=== PATIENT | male | born 1940 | race Caucasian/White ===

== ENCOUNTER 2016-09-04 15:15 | Outpatient (CLI) | payer MEDICARE, BC | END 2016-09-04 15:16 | disposition home or self-care (01) | DX: H53.452 Other localized visual field defect, left eye (principal) ==

== ENCOUNTER 2018-02-12 09:03 | Outpatient (CLI) | payer MEDICARE, BC | END 2018-02-12 09:04 | disposition home or self-care (01) | LOC: DI 09:03 | PROVIDERS: ATTEND Internal Medicine | DX: R06.00 Dyspnea, unspecified (principal); I51.7 Cardiomegaly | CPT/HCPCS: 93306 ==

== ENCOUNTER 2018-06-13 19:43 | Outpatient (CLI) | payer MEDICARE, BC | END 2018-06-13 19:44 | disposition critical access hospital (66) | LOC: EMS 19:43 | PROVIDERS: ATTEND Surgery | DX: R47.9 Unspecified speech disturbances (principal); R29.810 Facial weakness; R41.0 Disorientation, unspecified | CPT/HCPCS: A0425; A0429 ==

== ENCOUNTER 2018-06-13 19:52 | Emergency (ER) | payer MEDICARE, BC ==
--- NOTE | 2018-06-13 20:00 | ED Physician Documentation ---
PD HPI FOCAL NEURO - Stated complaint Stated Complaint: POSS STROKE - History obtained from History obtained from: Patient, EMS - History of Present Illness Timing - onset: Today (At 6:35 PM while at dinner this 77-year-old gentleman who has had a TIA in the past and is on warfarin for history of factor V Leiden with DVT presented with slurred speech and difficulty talking as well as a right facial droop. He has no complaints now.) Review of Systems Ten Systems: 10 systems reviewed and negative Constitutional: denies: Fever, Chills Throat: reports: Reviewed and negative Cardiac: reports: Reviewed and negative PD PAST MEDICAL HISTORY - Past Medical History Cardiovascular: Hypertension, High cholesterol, Pulmonary embolism Respiratory: None Endocrine/Autoimmune: None GI: None : None HEENT: None Psych: None Musculoskeletal: Osteoarthritis Derm: None - Past Surgical History General: Appendectomy, Colonoscopy HEENT: Tonsil/Adenoidectomy - Present Medications Home Medications: Ambulatory Orders Medication Instructions Recorded Confirmed Diclofenac Sodium 37.5 BID 06/05/13 06/05/13 Simvastatin 20 mg PO 06/05/13 06/05/13 Warfarin Sodium [Coumadin] 6 mg PO 06/05/13 06/05/13 - Allergies Allergies/Adverse Reactions: Allergies Allergy/AdvReac Type Severity Reaction Status Date / Time hydromorphone HCl * Allergy Severe Nausea Verified 06/05/13 14:37 [From Dilaudid] meperidine HCl * Allergy Severe Nausea Verified 06/05/13 14:37 [From Demerol] PD ED PE NORMAL - Vitals Vital signs reviewed: Yes - General General: Alert and oriented X 3, No acute distress - HEENT HEENT: PERRL, EOMI - Neck Neck: Supple, no meningeal sign, No bony TTP - Cardiac Cardiac: RRR, No murmur - Respiratory Respiratory: No respiratory distress, Clear bilaterally - Abdomen Abdomen: Normal bowel sounds, Soft, Non tender - Back Back: No CVA TTP, No spinal TTP - Derm Derm: Normal color, Warm and dry - Extremities Extremities: No edema, No calf tenderness / cord - Neuro Neuro: Alert and oriented X 3, Normal speech Eye Opening: Spontaneous Motor: Obeys Commands Verbal: Oriented GCS Score: 15 - Psych Psych: Normal mood, Normal affect NIHSS - Time Time: 19:55 - Level of Consciousness Level of consciousness: (0) Alert, Keenly responsive LOC Questions: (0) Answers both Q's correct LOC Commands: (0) Performs both correctly - Gaze Best Gaze: (0) Normal - Visual Visual: (0) No loss - Facial Palsy Facial Palsy: (0) Normal, symmetrical movement - Motor Arms (both separate) Motor Arm (right): (0) No drift Motor Arm (left): (0) No drift - Motor Legs (both separate) Motor Leg (right): (0) No drift Motor Leg (left): (0) No drift - Limb Ataxia Limb Ataxia: (0) Absent - Sensory Sensory: (0) Normal - Best Language Best Language: (0) No aphasia - Dysarthria Dysarthria: (0) Normal - Extinction and Inattention (formally neg Extinction and inattention: (0) No abnormality - Total Score/Results Total Score/Result: 0 Results - Vitals Vitals: Vital Signs - 24 hr 06/13/18 06/13/18 06/13/18 19:56 20:04 20:26 Temperature 36.9 C Heart Rate 76 67 Respiratory 20 18 Rate Blood Pressure 147/80 H 147/80 H O2 Saturation 96 97 Oxygen O2 Source Room air - EKG (time done) 1958 Rate: Rate (enter#) (74) Rhythm: NSR [place]: Normal, LAD Intervals: Normal [place] QRS: Normal Ischemia: Normal ST segments Computer interpretation: Agree with computer - Labs Labs: Laboratory Tests 06/13/18 06/13/18 06/13/18 20:02 20:02 20:02 WBC 10.1 RBC 4.62 L Hgb 14.8 Hct 44.6 MCV 96.5 H MCH 32.1 H MCHC 33.2 RDW 14.1 Plt Count 221 MPV 8.8 Neut # (Auto) 5.9 Lymph # (Auto) 2.8 [place] # (Auto) 0.9 Eos # (Auto) 0.4 Baso # (Auto) 0.1 Absolute Nucleated RBC 0.00 Nucleated RBC % 0.0 PT 32.0 H INR 2.9 H Sodium 141 Potassium 4.0 Chloride 107 Carbon Dioxide 24 Anion Gap 10.0 BUN 22 H Creatinine 0.9 Estimated GFR (MDRD) 82 L Glucose 162 H Calcium 8.8 Total Bilirubin 1.0 AST 31 ALT 39 Alkaline Phosphatase 86 Total Protein 7.5 Albumin 3.6 Globulin 3.9 Albumin/Globulin Ratio 0.9 L Lipase 34 Ethyl Alcohol 6.6 PD MEDICAL DECISION MAKING - ED course ED course: 77-year-old gentleman therapeutically anticoagulated on warfarin presents with strokelike symptoms but he was also drinking tonight and that the symptoms could be consistent with that although his alcohol level here is negligible. He had similar episode 2 months ago in [place] and per their description he had a complete workup there including carotid ultrasound without pertinent findings. Given the recurrent nature of this and the fact that he is therapeutically anticoagulated he is not a TPA candidate given the resolve nature of the symptoms and also probably does not need formal observation in the hospital given that he is on fairly maximal medical therapy. Departure - Departure Disposition: 01 Home, Self Care Clinical Impression: TIA (transient ischemic attack) Condition: Good Record reviewed to determine appropriate education?: Yes Instructions: ED Transient Ischemic Attack Comments: Refrain from alcohol. Follow-up with your doctor on Sunday for further evaluation and treatment, discuss low-dose aspirin therapy in addition to your warfarin.
[2018-06-13 20:18] LABS: BASOPHILS # (AUTO) 0.1 10^3/uL (0.0-0.1); BASOPHILS % (AUTO) 1.2 %; EOSINOPHILS # (AUTO) 0.4 10^3/uL (0.0-0.7); EOSINOPHILS % (AUTO) 3.6 %; HGB - HEMOGLOBIN 14.8 g/dL (14.0-18.0); LYMPHOCYTES # (AUTO) 2.8 10^3/uL (1.5-3.5); LYMPHOCYTES % (AUTO) 27.9 %; MEAN CORPUSCULAR HEMOGLOBIN 32.1 pg (27.0-31.0); MEAN CORPUSCULAR HGB CONC 33.2 g/dL (32.0-36.0); MEAN CORPUSCULAR VOLUME 96.5 fL (80.0-94.0); MEAN PLATELET VOLUME 8.8 fL (7.4-11.4); MONOCYTES # (AUTO) 0.9 10^3/uL (0.0-1.0); NEUTROPHILS # (AUTO) 5.9 10^3/uL (1.5-6.6); NEUTROPHILS % (AUTO) 58.3 %; PLT - PLATELET COUNT 221 10^3/uL (130-450); RED BLOOD COUNT 4.62 10^6/uL (4.70-6.10); RED CELL DISTRIBUTION WIDTH 14.1 % (12.0-15.0); WHITE BLOOD COUNT 10.1 x10^3/uL (4.8-10.8)
--- NOTE | 2018-06-13 20:24 | CT Report ---
Reason: TIA sx Procedure Date: 06/13/2018 Accession Number: [id number] / [id number] Procedure: CT - Head W/O Stroke Protocol CPT Code: FULL RESULT: EXAM: CT HEAD EXAM DATE: 06/13/2018 08:15 PM. CLINICAL HISTORY: Stroke. COMPARISON: None. TECHNIQUE: Multiaxial CT images were obtained from the foramen magnum to the vertex. Reformats: Sagittal and coronal. IV contrast: None. In accordance with CT protocol optimization, one or more of the following dose reduction techniques were utilized for this exam: automated exposure control, adjustment of mA and/or KV based on patient size, or use of iterative reconstructive technique. FINDINGS: Parenchyma: No intraparenchymal hemorrhage. No evidence of mass, midline shift, or CT findings of acute infarction. Gilliland-white differentiation is distinct. Extraaxial Spaces: Normal for age. No subdural or epidural collections identified. Ventricles: Normal in size and position. Sinuses and Orbits: Imaged paranasal sinuses, orbits, and mastoids show no significant abnormality. Bones: No evidence of fracture or calvarial defect. Other: None. IMPRESSION: No acute intracranial CT abnormality. RADIA The above findings were discussed with Drake Muhammad by Dr. Orin Lauren at 20:23 hrs on 06/13/18.
[2018-06-13 20:25] LABS: INR 2.9 (0.8-1.2)
[2018-06-13 20:29] LABS: ALBUMIN 3.6 g/dL (3.2-5.5); ALBUMIN/GLOBULIN RATIO 0.9 (1.0-2.2); CALCIUM 8.8 mg/dL (8.5-10.3); CREATININE 0.9 mg/dL (0.6-1.2); TOTAL PROTEIN 7.5 g/dL (6.7-8.2)
[2018-06-13 21:02] VITALS: BP 157/86
== END 2018-06-13 21:03 | disposition home or self-care (01) ==
LOC: EDUNIT# → ED 19:52
DX: G45.9 Transient cerebral ischemic attack, unspecified (principal); I10 Essential (primary) hypertension; D68.51 Activated protein C resistance; Z86.711 Personal history of pulmonary embolism; Z87.898 Personal history of other specified conditions; Z86.73 Personal history of transient ischemic attack (TIA), and cerebral infarction without residual deficits; Z86.718 Personal history of other venous thrombosis and embolism; Z79.01 Long term (current) use of anticoagulants
CPT/HCPCS: 36415; 70450; 80053; 80320; 83690; 85025; 85610; 93005; 99284

== ENCOUNTER 2019-02-15 08:34 | Outpatient (CLI) | payer MEDICARE, BC ==
[~2019-02-15 08:34] MED LIST: ALBUTEROL NEB 2.5 MG/3 ML INH SCH
== END 2019-02-15 08:35 | disposition home or self-care (01) ==
LOC: RT 08:34
PROVIDERS: ATTEND Internal Medicine
DX: R06.09 Other forms of dyspnea (principal)
CPT/HCPCS: 94060

== ENCOUNTER 2020-05-03 09:30 | Emergency (ER) | payer BC, MEDICARE ==
--- NOTE | 2020-05-03 10:32 | ED Physician Documentation ---
PD HPI SKIN - Stated complaint Stated Complaint: NECK PX, RAMIREZ, RASH - History obtained from History obtained from: Patient - History of Present Illness Timing - onset: How many days ago (3-4) Timing - duration: Days (3-4) Timing - details: Gradual onset (onset of pain left side of face and around ear 3-4 days ago, with gradual worsening, and started with some rash blistering in that area 2-3 days ago, also increasing. Much worse pain the past day. Increased redness of rash as well around the chin.) Location: Face (left side mandible, anterior neck, up to the periauricular area.) Quality / character: Painful, Discolored, Vesicular, Draining (clear fluid mildly) Associated symptoms: Facial swelling (left mandible and anterior neck area). No: Fever, Myalgias Similar symptoms before: Has not had sx before Review of Systems Constitutional: reports: Myalgias. denies: Fever, Chills Nose: denies: Rhinorrhea / runny nose, Congestion Throat: denies: Sore throat Respiratory: denies: Cough GI: denies: Abdominal Pain, Nausea, Vomiting Skin: reports: Rash (left lower face and anterior neck.) Neurologic: denies: Generalized weakness, Focal weakness, Numbness PD PAST MEDICAL HISTORY - Past Medical History Cardiovascular: Hypertension, High cholesterol, Pulmonary embolism Respiratory: None Neuro: TIA Endocrine/Autoimmune: None GI: None : None HEENT: None Psych: None Musculoskeletal: Osteoarthritis Derm: None - Past Surgical History Past Surgical History: Yes General: Appendectomy, Colonoscopy HEENT: Tonsil/Adenoidectomy - Present Medications Home Medications: Ambulatory Orders Medication Instructions Recorded Confirmed Diclofenac Sodium 37.5 BID 06/05/13 06/05/13 Simvastatin 20 mg PO 06/05/13 06/05/13 Warfarin Sodium [Coumadin] 6 mg PO 06/05/13 06/05/13 - Allergies Allergies/Adverse Reactions: Allergies Allergy/AdvReac Type Severity Reaction Status Date / Time hydromorphone HCl * Allergy Severe Nausea Verified 06/05/13 14:37 [From Dilaudid] meperidine HCl * Allergy Severe Nausea Verified 06/05/13 14:37 [From Demerol] - Social History Does the pt smoke?: No Smoking Status: Never smoker Does the pt drink ETOH?: Yes - Immunizations Immunizations are current?: No PD ED PE NORMAL - Vitals Vital signs reviewed: Yes - General General: Alert and oriented X 3, Well developed/nourished, Other (appears in pain due to face hurting. ) - HEENT HEENT: Ears normal, Moist mucous membranes, Pharynx benign - Neck Neck: Supple, no meningeal sign, No adenopathy, Other (there is blistering nearly confluent rash on left periauricular, anterior neck and mandible area going to midline anterior neck and abruptly stopping at midline. Some redness of skin just right of midline but no rash nor tenderness. Some areas of crusting with yellow on anterior neck. 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
[2020-05-03] MEDS ORDERED: ACYCLOVIR 200 MG CAPSULE PO ONE (11:05)
[2020-05-03] MEDS ORDERED: DOXYCYCLINE 100 MG TABLET PO ONE (11:05)
[2020-05-03] MEDS ORDERED: HYDROcod/ACETAM 5/325 MG TABLET ONE (11:06)
[2020-05-03] MEDS ORDERED: DEXAMETHASONE 10 MG/ML VIAL ONE (11:06)
[2020-05-03 19:13] LABS: INR 2.9 (0.8-1.2); PT - PROTHROMBIN TIME 30.3 secs (9.9-12.6)
== END 2020-05-03 11:27 | disposition home or self-care (01) ==
LOC: ED 09:30
DX: B02.8 Zoster with other complications (principal); I10 Essential (primary) hypertension; Z79.01 Long term (current) use of anticoagulants; Z86.711 Personal history of pulmonary embolism
CPT/HCPCS: 36415; 85610; 99283; 99284; A9270

== ENCOUNTER 2020-12-27 21:21 | Observation (INO) | payer MEDICARE ==
[2020-12-27 21:53] LABS: BASOPHILS % (AUTO) 0.2 %; HCT - HEMATOCRIT 41.6 % (42.0-52.0); HGB - HEMOGLOBIN 14.4 g/dL (14.0-18.0); LYMPHOCYTES % (AUTO) 8.4 %; MEAN CORPUSCULAR HEMOGLOBIN 32.5 pg (27.0-31.0); MEAN CORPUSCULAR HGB CONC 34.6 g/dL (32.0-36.0); MEAN CORPUSCULAR VOLUME 93.9 fL (80.0-94.0); MEAN PLATELET VOLUME 9.8 fL (7.4-11.4); MONOCYTES % (AUTO) 10.2 %; NEUTROPHILS % (AUTO) 80.6 %; PLT - PLATELET COUNT 196 10^3/uL (130-450); RED BLOOD COUNT 4.43 10^6/uL (4.70-6.10); RED CELL DISTRIBUTION WIDTH 13.8 % (12.0-15.0); WHITE BLOOD COUNT 23.4 x10^3/uL (4.8-10.8)
[2020-12-27 21:58] LABS: ABNORMAL LYMPHS % (MANUAL) 0 %
[2020-12-27 22:15] LABS: ALBUMIN 3.7 g/dL (3.2-5.5); ALBUMIN/GLOBULIN RATIO 1.1 (1.0-2.2); BILIRUBIN,TOTAL 1.6 mg/dL (0.2-1.0); CALCIUM 8.9 mg/dL (8.5-10.3); CREATININE 0.9 mg/dL (0.6-1.2); POTASSIUM 4.2 mmol/L (3.5-5.0); TOTAL PROTEIN 7.2 g/dL (6.7-8.2)
[2020-12-27 22:17] LABS: BAND NEUTROPHILS % (MANUAL) 3 %; LYMPHOCYTES # (MANUAL) 1.4 10^3/uL (1.5-3.5); LYMPHOCYTES % (MANUAL) 6 %; MONOCYTES # (MANUAL) 1.6 10^3/uL (0.0-1.0); NEUTROPHILS # (MANUAL) 20.4 10^3/uL (1.5-6.6); PLATELET ESTIMATE, MANUAL NORMAL (130-450,000) (NORMAL); PLATELET MORPHOLOGY NORMAL APPEARANCE (NORMAL); RBC MORPHOLOGY (MULTIPLE) NORMAL APPEARANCE (NORMAL); WBC MORPHOLOGY (MULTIPLE) 2+ TOXIC GRANULATION (NORMAL)
[2020-12-27 22:18] LABS: DIFFERENTIAL COMMENT MANUAL DIFFERENTIAL
[2020-12-27] MEDS ORDERED: SODIUM CHLORIDE 0.9% 1,000 ML IV STA (22:23)
[2020-12-27] MEDS ORDERED: IOVERSOL 320 100 ML VIAL IVP ONE ×2 (22:36→23:59)
[2020-12-27 22:39] LABS: INR 2.5 (0.8-1.2); PT - PROTHROMBIN TIME 26.2 secs (9.9-12.6)
--- NOTE | 2020-12-27 23:21 | ED Physician Documentation ---
PD HPI CHEST PAIN - Stated complaint Stated Complaint: DIZZY/CP - Chief complaint Chief Complaint: Cardiac - History obtained from History obtained from: Patient - Additional information Additional information: 80-year-old man with past medical history of factor V Leiden on Coumadin presents with abdominal pain starting at 1 AM on 12/27 waking him from sleep, sharp, intermittent, worsening throughout the day, associated with nausea no vomiting. Also had an episode of chest pain across the entire chest, nonradiating, that has now resolved. He also was endorsing some dizziness in the afternoon and his said that he was confused about the time. This is unusual for him. Patient denies fevers, vomiting, diarrhea, back pain or urinary symptoms. Review of Systems Ten Systems: 10 systems reviewed and negative Constitutional: denies: Fever, Chills Cardiac: reports: Chest pain / pressure Respiratory: denies: Dyspnea GI: reports: Abdominal Pain, Nausea. denies: Vomiting, Diarrhea : denies: Dysuria PD PAST MEDICAL HISTORY - Past Medical History Past Medical History: Yes Cardiovascular: Hypertension, High cholesterol, Pulmonary embolism Respiratory: None Neuro: TIA Endocrine/Autoimmune: None GI: None : None HEENT: None Psych: None Musculoskeletal: Osteoarthritis Derm: None - Past Surgical History Past Surgical History: Yes General: Appendectomy, Colonoscopy HEENT: Tonsil/Adenoidectomy - Present Medications Home Medications: Ambulatory Orders Medication Instructions Recorded Confirmed Simvastatin 20 mg PO 06/05/13 06/05/13 Warfarin Sodium [Coumadin] 5 mg PO 06/05/13 06/05/13 - Allergies Allergies/Adverse Reactions: Allergies Allergy/AdvReac Type Severity Reaction Status Date / Time hydromorphone HCl * Allergy Severe Nausea Verified 12/27/20 21:26 [From Dilaudid] meperidine HCl * Allergy Severe Nausea Verified 12/27/20 21:26 [From Demerol] - Social History Does the pt smoke?: No Smoking Status: Never smoker Does the pt drink ETOH?: Yes Does the pt have substance abuse?: No - Immunizations Immunizations are current?: No PD ED PE NORMAL - Vitals Vital signs reviewed: Yes - General General: Alert and oriented X 3, No acute distress, Well developed/nourished - HEENT HEENT: Atraumatic, PERRL, EOMI - Neck Neck: Supple, no meningeal sign - Cardiac Cardiac: RRR - Respiratory Respiratory: No respiratory distress, Clear bilaterally - Abdomen Abdomen: Other (Positive Aranda sign. Abdomen otherwise nontender nonperitoneal) - Back Back: No CVA TTP - Derm Derm: Normal color - Extremities Extremities: No deformity - Neuro Neuro: Alert and oriented X 3 - Psych Psych: Normal mood, Normal affect Results - Vitals Vitals: Vital Signs - 24 hr 12/27/20 12/27/20 12/28/20 21:26 22:36 00:07 Temperature 36.5 C Heart Rate 86 74 Heart Rate [ 84 Sitting] Heart Rate [ 92 Standing] Heart Rate [ 80 Supine] Respiratory 16 21 Rate Blood Pressure 134/63 H 132/82 H Blood Pressure 122/62 [Sitting] Blood Pressure 110/62 [Standing] Blood Pressure 113/66 [Supine] O2 Saturation 99 98 Oxygen O2 Source Room air - EKG (time done) 2125 Rate: Rate (enter#) (86) Rhythm: NSR [place]: LAD Intervals: Normal [place] QRS: Normal Ischemia: Normal ST segments Computer interpretation: Agree with computer - Labs Labs: Laboratory Tests 12/27/20 12/27/20 12/27/20 21:45 21:45 21:45 WBC 23.4 H RBC 4.43 L Hgb 14.4 Hct 41.6 L MCV 93.9 MCH 32.5 H MCHC 34.6 RDW 13.8 Plt Count 196 MPV 9.8 Neut # (Auto) Not Reportable Lymph # (Auto) Not Reportable [place] # (Auto) Not Reportable Eos # (Auto) Not Reportable Baso # (Auto) Not Reportable Absolute Nucleated RBC Not Reportable Total Counted 100 Band Neuts % (Manual) 3 Abnorm Lymph % (Manual) 0 Nucleated RBC % Not Reportable Neutrophils # (Manual) 20.4 H Lymphocytes # (Manual) 1.4 L Monocytes # (Manual) 1.6 H Eosinophils # (Manual) 0.0 Basophils # (Manual) 0.0 Differential Comment MANUAL DIFFERENTIAL WBC Morphology 2+ TOXIC GRANULATION Platelet Estimate NORMAL (130-450,000) Platelet Morphology NORMAL APPEARANCE RBC Morph Micro Appear NORMAL APPEARANCE PT INR Sodium 135 Potassium 4.2 Chloride 102 Carbon Dioxide 23 Anion Gap 10.0 BUN 22 H Creatinine 0.9 Estimated GFR (MDRD) 82 L Glucose 192 H Lactic Acid Calcium 8.9 Total Bilirubin 1.6 H AST 35 ALT 42 Alkaline Phosphatase 65 Troponin I High Sens 13.9 Total Protein 7.2 Albumin 3.7 Globulin 3.5 Albumin/Globulin Ratio 1.1 Lipase 21 L Nasal Adenovirus (PCR) Nasal B. parapertussis DNA (PCR) Nasal Coronavir 229E PCR Nasal Coronavir HKU1 PCR Nasal Coronavir NL63 PCR Nasal Coronavir OC43 PCR Nasal Enterovir/Rhinovir PCR Nasal Influenza B PCR Nasal Influenza A PCR Nasal Parainfluen 1 PCR Nasal Parainfluen 2 PCR Nasal Parainfluen 3 PCR Nasal Parainfluen 4 PCR Nasal RSV (PCR) Nasal B.pertussis DNA PCR Nasal C.pneumoniae (PCR) Blue Human Metapneumo PCR Nasal M.pneumoniae (PCR) Nasal SARS-CoV-2 (PCR) 12/27/20 12/27/20 12/28/20 22:28 22:30 00:57 WBC RBC Hgb Hct MCV MCH MCHC RDW Plt Count MPV Neut # (Auto) Lymph # (Auto) [place] # (Auto) Eos # (Auto) Baso # (Auto) Absolute Nucleated RBC Total Counted Band Neuts % (Manual) Abnorm Lymph % (Manual) Nucleated RBC % Neutrophils # (Manual) Lymphocytes # (Manual) Monocytes # (Manual) Eosinophils # (Manual) Basophils # (Manual) Differential Comment WBC Morphology Platelet Estimate Platelet Morphology RBC Morph Micro Appear PT 26.2 H INR 2.5 H Sodium Potassium Chloride Carbon Dioxide Anion Gap BUN Creatinine Estimated GFR (MDRD) Glucose Lactic Acid 2.0 Calcium Total Bilirubin AST ALT Alkaline Phosphatase Troponin I High Sens Total Protein Albumin Globulin Albumin/Globulin Ratio Lipase Nasal Adenovirus (PCR) NOT DETECTED Nasal B. parapertussis DNA (PCR) NOT DETECTED Nasal Coronavir 229E PCR NOT DETECTED Nasal Coronavir HKU1 PCR NOT DETECTED Nasal Coronavir NL63 PCR NOT DETECTED Nasal Coronavir OC43 PCR NOT DETECTED Nasal Enterovir/Rhinovir PCR NOT DETECTED Nasal Influenza B PCR NOT DETECTED Nasal Influenza A PCR NOT DETECTED Nasal Parainfluen 1 PCR NOT DETECTED Nasal Parainfluen 2 PCR NOT DETECTED Nasal Parainfluen 3 PCR NOT DETECTED Nasal Parainfluen 4 PCR NOT DETECTED Nasal RSV (PCR) NOT DETECTED Nasal B.pertussis DNA PCR NOT DETECTED Nasal C.pneumoniae (PCR) NOT DETECTED Blue Human Metapneumo PCR NOT DETECTED Nasal M.pneumoniae (PCR) NOT DETECTED Nasal SARS-CoV-2 (PCR) NOT DETECTED PD MEDICAL DECISION MAKING - ED course ED course: d/w Dr. Ralph who will admit patient for IV antibiotics, likely cholecystectomy tomorrow. Departure - Departure Disposition: ED Place in Observation Clinical Impression: Acute cholecystitis Condition: Good
[2020-12-27 23:31] LABS: B. PARAPERTUSSIS- RESP PCR PAN NOT DETECTED; B. PERTUSSIS- RESP PCR PANEL NOT DETECTED; C. PNEUMONIAE- RESP PCR PANEL NOT DETECTED; CORONAVIRUS 229E-RESP PCR NOT DETECTED; CORONAVIRUS HKU1-RESP PCR NOT DETECTED; CORONAVIRUS NL63-RESP PCR NOT DETECTED; CORONAVIRUS OC43-RESP PCR NOT DETECTED; HUMAN METAPNEUMOVIRUS NOT DETECTED; INFLUENZA A- RESP PCR PANEL NOT DETECTED; INFLUENZA B - RESP PCR PANEL NOT DETECTED; M. PNEUMONIAE- RESP PCR PANEL NOT DETECTED; PARAINFLUENZA VIRUS 1 NOT DETECTED; PARAINFLUENZA VIRUS 2 NOT DETECTED; PARAINFLUENZA VIRUS 3 NOT DETECTED; PARAINFLUENZA VIRUS 4 NOT DETECTED; RHINOVIRUS/ENTEROVIRUS NOT DETECTED; RSV- RESP PCR PANEL NOT DETECTED; SARS-CoV-2 -RESP PCR PANEL NOT DETECTED
[2020-12-28] MEDS ORDERED: SODIUM CHLORIDE FLUSH 0.9% 10 ML SYRINGE IVP PRN (01:41)
[2020-12-28] MEDS ORDERED: ACETAMINOPHEN 325 MG TABLET PO PRN (01:41)
[2020-12-28] MEDS ORDERED: ONDANSETRON 4 MG/2 ML VIAL IVP PRN (01:41)
[2020-12-28] MEDS ORDERED: HYDROmorphone 0.5 MG/0.5 ML SYRINGE IVP PRN (01:41)
[2020-12-28] MEDS ORDERED: ONDANSETRON ODT 4 MG TABLET TL PRN (01:41)
[2020-12-28] MEDS ORDERED: PIPERACILLIN/TAZOBACTAM 3.375 GM in SODIUM CHLORIDE 0.9% MINIBAG 100 ML IV STA (01:44)
[2020-12-28] MEDS ORDERED: ACETAMINOPHEN 325 MG TABLET PO STA (01:50)
--- OUTSIDE RECORDS SUMMARY | 2020-12-28 01:55 | EXTERNAL MEDICAL SUMMARY RPT | Continuity of Care Document ---
:1940 Demographics Phone Unavailable Preferred Language Unknown Marital Status Unknown Mosque Affiliation Unknown Race Unknown Ethnic Group Unknown Author Organization [facility] Address [address] [id number] Phone Allergies Encounters Medications Problems Results
[2020-12-28] MEDS: LACTATED RINGERS 1,000 ML IV SCH ×2 (02:38→13:24)
[2020-12-28] MEDS: AMPICILLIN/SULBACTAM 3 GM in SODIUM CHLORIDE 0.9% MINIBAG 100 ML IV SCH ×2 (05:34→12:29)
[2020-12-28 06:00] LABS: BILIRUBIN,URINE NEGATIVE (NEGATIVE); GLUCOSE, URINE (UA) NEGATIVE (NEGATIVE); KETONES,URINE (UA) NEGATIVE (NEGATIVE); LEUKOCYTE ESTERASE, URINE NEGATIVE (NEGATIVE); NITRITE,URINE NEGATIVE (NEGATIVE); OCCULT BLOOD,URINE TRACE-INTA (NEGATIVE); PROTEIN,URINE NEGATIVE (NEGATIVE); UROBILINOGEN,URINE 0.2 (NORMAL) E.U./dL (NORMAL)
[2020-12-28 06:03] LABS: CLARITY,URINE CLEAR (CLEAR)
[2020-12-28 06:15] LABS: BACTERIA,URINE None Seen /HPF (None Seen); RBC,URINE 0-5 /HPF (0-5); SQUAMOUS EPITHELIAL CELL,UR NONE SEEN (<= Few); WBC,URINE 0-3 /HPF (0-3)
--- NOTE | 2020-12-28 08:43 | XRAY Report ---
PROCEDURE: Chest 1 View X-Ray INDICATIONS: Chest pain TECHNIQUE: One view of the chest was acquired. COMPARISON: 09/28/2014 chest radiograph FINDINGS: Surgical changes and devices: None. Lungs and pleura: No pleural effusions or pneumothorax. Lungs are clear. Mediastinum: Mediastinal contours appear normal. Heart size is normal. Bones and chest wall: No suspicious bony lesions. Overlying soft tissues appear unremarkable. IMPRESSION: No acute cardiopulmonary process demonstrated radiographically. Reviewed by: Carrillo Brothers MD on 12/28/2020 8:42 AM PDT Approved by: Carrillo Brothers MD on 12/28/2020 8:42 AM PDT Station ID: [id number]
--- NOTE | 2020-12-28 08:46 | Ultrasound Report ---
PROCEDURE: Abdomen Limited INDICATIONS: RUQ pain TECHNIQUE: Real-time focused scanning was performed of the abdomen, with image documentation. COMPARISON: None FINDINGS: Small cyst in the right hepatic lobe measuring 7 mm. Liver is otherwise within normal limi ts. No intrahepatic or extra hepatic biliary ductal dilatation. The common bile duct measures approximate ly 4 mm at the rajwinder hepatis. Normal distention of the gallbladder. There is no pericholecystic fluid. The gallbladder wall measure s up to 4 mm. There is a shadowing gallstone measuring approximately 1.8 cm. IMPRESSION: Approximately 1.8 cm gallstone. Gallbladder wall thickening up to 4 mm without gallbladder distention. This finding is the clavicle f or possible acute cholecystitis in the appropriate clinical setting. Reviewed by: Carrillo Brothers MD on 12/28/2020 8:44 AM PDT Approved by: Carrillo Brothers MD on 12/28/2020 8:44 AM PDT Station ID: [id number]
--- NOTE | 2020-12-28 08:47 | CT Report ---
PROCEDURE: Abdomen/Pelvis W INDICATIONS: Epigastric and right upper quadrant abdominal pain. CONTRAST: IV CONTRAST: Optiray 320 ml: 100 PO CONTRAST: *NO PO CONTRAST TECHNIQUE: After the administration of intravenous contrast, 5 mm thick sections acquired from the diaphragms to the symphysis. 5 mm thick coronal and sagittal reformats were acquired. For radiation dose reducti on, the following was used: automated exposure control, adjustment of mA and/or kV according to juana ent size. COMPARISON: None. FINDINGS: Image quality: Excellent. ABDOMEN: Lung bases: Lung bases are clear. Heart size is normal. Solid organs: Previously seen gallstone is redemonstrated. The gallbladder is distended with wall thi ckening and mild pericholecystic or fat stranding. Findings are suggestive of cholecystitis. No intra hepatic or extrahepatic biliary ductal dilatation. No acute finding in the liver, spleen, pancreas, o r adrenal glands. Small bilateral renal cysts. No hydroureteronephrosis. Peritoneum and bowel: No abnormally dilated or thickened loops of bowel. No pericolonic or mesenteric inflammatory change. Sigmoid diverticulosis. Nodes and vessels: No retroperitoneal or mesenteric adenopathy by size criteria. Aorta and inferior vena cava are normal in size. Miscellaneous: No ventral hernias. PELVIS: Genitourinary: Bladder wall thickness is normal. Miscellaneous: No inguinal hernias or adenopathy. Bones: No suspicious bony lesions. No vertebral body compression fractures. IMPRESSION: Distended gallbladder with mild wall thickening and pericholecystic fat stranding. Findi ngs are suggestive of cholecystitis. Reviewed by: Carrillo Brothers MD on 12/28/2020 8:46 AM PDT Approved by: Carrillo Brothers MD on 12/28/2020 8:46 AM PDT Station ID: [id number]
[2020-12-28] MEDS ORDERED: SODIUM CHLORIDE FLUSH 0.9% 10 ML SYRINGE IVP SCH (09:00)
--- NOTE | 2020-12-28 09:08 | CT Report ---
PROCEDURE: ANGIO NECK W INDICATIONS: Stroke symptoms CONTRAST: IV CONTRAST: Optiray 320 ml: 100 PO CONTRAST: *NO PO CONTRAST TECHNIQUE: After the administration of intravenous contrast, 1.5 mm axial sections acquired from the aortic arch to the [place] of [place]. Coronal 3-D maximum intensity projection (MIP) and/or volume rendering ref ormats were then performed. For radiation dose reduction, the following was used: automated exposur e control, adjustment of mA and/or kV according to patient size. COMPARISON: None. FINDINGS: Image quality: Excellent. Carotid system: The great vessels demonstrate a conventional anatomy as they arise from the aortic a rc. The origins of the common carotid arteries appear patent. The common carotid arteries demonstr ate normal calibers and courses. The bifurcation regions appear normal bilaterally. The internal ca rotid arteries demonstrate normal caliber and course. Posterior circulation: The origins of the vertebral arteries appear patent. The more superior porti ons of the vertebral arteries demonstrate normal course and caliber. Dominant left vertebral artery w ith diminutive right vertebral artery. They join to form a normal appearing basilar artery. Soft tissues: Visualized neck soft tissues demonstrate no suspicious abnormalities. The thyroid is normal in size and there are no incidental findings. Bones: No suspicious bony lesions. Visualized cervical spine appears normally aligned. IMPRESSION: No hemodynamic significant stenosis of the major extracranial arterial vasculature. Atherosclerotic plaque and calcification at the carotid bifurcations without hemodynamically signific ant stenosis. The estimate of stenosis included in the report of the imaging study was calculated using the NASCET method CLINICAL RECOMMENDATION STATEMENTS: In patients <35 years with an ITN detected on CT, MRI, or extrathyroidal ultrasound, the Committee re commends further evaluation with dedicated thyroid ultrasound if the nodule is ?1 cm and has no suspi cious imaging features, and if the patient has normal life expectancy. In patients ?35 years with an ITN detected on CT, MRI, or extrathyroidal ultrasound, the Committee re commends further evaluation with dedicated thyroid ultrasound if the nodule is ?1.5 cm and has no wendy picious imaging features, and if the patient has normal life expectancy. (ACR, 2014) Reviewed by: Carrillo Brothers MD on 12/28/2020 9:06 AM PDT Approved by: Carrillo Brothers MD on 12/28/2020 9:06 AM PDT Station ID: [id number]
--- NOTE | 2020-12-28 09:13 | CT Report ---
PROCEDURE: ANGIO HEAD W/WO INDICATIONS: Acute confusion, history of factor V Leiden disorder CONTRAST: IV CONTRAST: Optiray 320 ml: 100 PO CONTRAST: *NO PO CONTRAST TECHNIQUE: Precontrast 4.5 mm thick angled axial sections acquired from the foramen magnum to the vertex. Afte r the administration of intravenous contrast, 1 mm thick sections acquired through the [place] is. Postcontrast 4.5 mm thick sections then re-acquired from the foramen magnum to the vertex. 3-di mensional uerozso-cuonmqonx-paprpllkjh (MIP) and/or volume rendering reformats were acquired of the c entral intracranial vasculature. For radiation dose reduction, the following was used: automated ex posure control, adjustment of mA and/or kV according to patient size. COMPARISON: None. FINDINGS: Image quality: Excellent. Anterior circulation: Intracranial internal carotid arteries are normal in size and flow. Hypoplasti c left A1 segment with a subjectively larger than expected anterior communicating artery, suggesting that the flow in the left anterior cerebral artery territory occurs primarily of the thigh the anteri or communicate artery. Remaining JOSUE branches are normal bilaterally. No flow limiting stenosis or oc clusion of the middle cerebral artery branches. No aneurysm identified in the anterior circulation. Posterior circulation: Hypoplastic right vertebral artery, particularly the V4 segment which contribu naveed to very little to the basilar circulation. The chronicity of the right V4 narrowing is unknown. CSF spaces: Ventricles are normal in size and shape. Basal cisterns are patent. No extra-axial flu id collections. Brain: No midline shift. No intracranial bleeds or masses. Gilliland-white matter interface appears int act. Skull and face: Calvarium and facial bones appear intact, without suspicious lesions. Sinuses: Visualized sinuses and mastoids are clear. 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 It is unknown if this represents chronic narrowing or congenital hypoplasticity. Hypoplastic left A1 segment with most of the left anterior cerebral artery circulation occurring via the anterior to indicating artery from the right A1 segment. Otherwise the major intracranial arterial circulation is widely patent. Reviewed by: Carrillo Brothers MD on 12/28/2020 9:12 AM PDT Approved by: Carrillo Brothers MD on 12/28/2020 9:12 AM PDT Station ID: [id number]
--- NOTE | 2020-12-28 10:09 | HISTORY & PHYSICAL EXAMINATION ---
Chief Complaint - Chief Complaint Chief Complaint: right upper quadrant pain History of Present Illness - Admitted From Admitted From:: ED - History Obtained From Records Reviewed: yes History obtained from: pt Exam Limitations: none - History of Present Illness HPI Comment/Other: 36 hours of severe epigastric and right upper quadrant pain. Pain is now more localized to the right upper quadrant. No prior similar symptoms. History of clotting disorder. He states his stroke occurred over a year ago and he has been well since. He denies heart problem and has good exercise tolerance. He is History - Past Medical History Cardiovascular: reports: Hypertension, High cholesterol, Pulmonary embolism Respiratory: reports: None Neuro: reports: TIA, Head injury Endocrine/Autoimmune: reports: None GI: reports: None : reports: None HEENT: reports: None Psych: reports: None Musculoskeletal: reports: Osteoarthritis Derm: reports: None MRSA Hx?: No Other Past Medical History: Factor V Leiden - Past Surgical History General: reports: Appendectomy, Colonoscopy HEENT: reports: Tonsil/Adenoidectomy Meds/Allgy - Home Medications Home Medications: Ambulatory Orders Medication Instructions Recorded Confirmed Simvastatin 20 mg PO 06/05/13 06/05/13 Warfarin Sodium [Coumadin] 5 mg PO 06/05/13 06/05/13 - Allergies Allergies/Adverse Reactions: Allergies Allergy/AdvReac Type Severity Reaction Status Date / Time hydromorphone HCl * Allergy Severe Nausea Verified 12/27/20 21:26 [From Dilaudid] meperidine HCl * Allergy Severe Nausea Verified 12/27/20 21:26 [From Demerol] Review of Systems - Other Findings Other Findings: 10 pt ros as above otherwise unremarkable Exam - Vital Signs Reviewed Vital Signs: Yes Vital Signs: Vital Signs x48h Temp Pulse Pulse Resp BP Pulse Ox 12/28/20 07:45 36.7 C 65 18 140/70 H 96 12/28/20 05:44 36.8 C 66 16 126/65 96 12/28/20 02:49 36.9 C 88 18 98 12/28/20 02:13 36.9 C 88 18 131/68 H 98 - Physical Exam General Appearance: positive: No acute distress, Alert Eyes Bilateral: positive: PERRL, EOMI, No scleral icterus ENT: positive: No signs of dehydration Neck: positive: No JVD, Trachea midline Respiratory: positive: No respiratory distress, Breath sounds nml Cardiovascular: positive: Regular rate & rhythm Abdomen: positive: No distention, Tenderness (right upper quadrant) Neurologic/Psychiatric: positive: Oriented x3 Conclusion/Plan - Problem List (1) Acute cholecystitis Conclusion/Plan: Plan ivf, iv abx, pain meds as needed today. surgery tomorrow. INR currently is too high. parq held and verbal consent obtained. - Lab Results Fish Bones: 12/27/20 21:45 12/27/20 21:45 Other Lab Results: INR 2.5 - Diagnostic Imaging Results Diagnostic Imaging Results: positive: Read independently (cholecystitis)
--- NOTE | 2020-12-28 12:37 | PHARMACY PROGRESS NOTE ---
- Best Possible Medication History Admit Date and Time: 12/28/20 0141 Processed by: Pharmacy Medication History completed: Yes Patient Interview: Completed Secondary Source(s): Pharmacy records, Insurance records As the person ultimately responsible for medication therapy, providers are able to order a medication from an existing home medication list in [facility] via the "Reconcile Routine" prior to Confirmation of that medication by network support. Such practice is discouraged except when the physician, in their clinical judgment, deems that a medical need exists for a medication without regard to previous use.
--- NOTE | 2020-12-28 15:47 | Discharge Plan ---
Discharge Plan Problem Reviewed?: Yes Disposition: Home, Self Care Prescriptions: Amox/Clav 875/125 [Augmentin 875/125 Tab] 1 tablet PO Q12H 7 Days #14 tablet Diet: Regular (light low fat diet for several days recommended) Activity Restrictions: No Restrictions Shower Restrictions: No Driving Restrictions: No Assessment: cholecystitis/ gallbladder infection/ inflammation Additional Instructions or Follow Up instructions: call the surgery office if you are not feeling better call the surgery office for a follow up appointment as desired [phone] No Smoking: If you smoke, Please STOP! Call for help. Follow-up with: Carlos Grande MD [Primary Care Provider] -
--- NOTE | 2020-12-28 15:50 | DISCHARGE SUMMARY ---
"Discharge Summary Admit Date: 12/28/20 Discharge Date: 12/28/20 Discharging Provider: khanh curry Code Status: Do Not Attempt Resuscitation Condition at Discharge: Good Discharge Facility [facility]: [facility] - DIAGNOSES Admission Diagnoses: cholecystitis Discharge Diagnoses with Status of Each Condition: home in ok / stable condition. pain improved. tolerating clears. afebrile. denies nausea does not want surgery - HPI History of Present Illness: 36 hours of severe epigastric/ right upper quadrant pain. improved - CONSULTS | PROCEDURES Procedures: ivf, pain medication, antibiotics - ALLERGIES Allergies/Adverse Reactions: Allergies Allergy/AdvReac Type Severity Reaction Status Date / Time hydromorphone HCl * Allergy Severe Nausea Verified 12/27/20 21:26 [From Dilaudid] meperidine HCl * Allergy Severe Nausea Verified 12/27/20 21:26 [From Demerol] - MEDICATIONS Home Medications: Ambulatory Orders Medication Instructions Recorded Confirmed Amox/Clav 875/125 [Augmentin 1 tablet PO Q12H 7 Days #14 tablet 12/28/20 875/125 Tab] [place]-3/Dha/Epa/Fish Oil [Fish Oil 1 cap PO DAILY 12/28/20 12/28/20 1,000 mg Softgel] Simvastatin [Zocor] 40 mg PO DAILY 12/28/20 12/28/20 Vit A/Vit C/Vit E/Zinc/Copper [Eye 1 tab PO BID 12/28/20 12/28/20 Multivitamin Tablet] Warfarin [Coumadin] 5 mg PO DAILY 12/28/20 12/28/20 Home Medications Other | Comments: if pain/ symptoms continue to improve resume your warfarin. - PHYSICAL EXAM AT DISCHARGE General Appearance: positive: No acute distress, Alert Eyes Bilateral: positive: PERRL, EOMI, No scleral icterus Respiratory: positive: No respiratory distress Abdomen: positive: Non-tender, No distention Neurologic/Psychiatric: positive: Oriented x3 - LABS Result Diagrams: 12/27/20 21:45 12/27/20 21:45 - FOLLOW UP Follow Up: surgery office if not improving and as desired [phone]"
[2020-12-28 15:59] VITALS: BP 130/65
== END 2020-12-28 16:05 | disposition home or self-care (01) ==
LOC: ED 21:21 → MS2 12-28 01:41
PROVIDERS: ADMIT Surgery; ATTEND Surgery
DX: I10 Essential (primary) hypertension (principal); D68.51 Activated protein C resistance; E78.00 Pure hypercholesterolemia, unspecified; Z79.01 Long term (current) use of anticoagulants; Z79.899 Other long term (current) drug therapy; Z86.711 Personal history of pulmonary embolism; Z86.73 Personal history of transient ischemic attack (TIA), and cerebral infarction without residual deficits; Z90.49 Acquired absence of other specified parts of digestive tract
CPT/HCPCS: 36415; 70496; 70498; 71045; 74177; 76705; 80053; 81001; 83605; 83690; 84484; 85025; 85610; 87040; 87631; 93005; 96365; 96366; 96367; 96375; 96376; 99284; 99285; A9270; G0378; J1170; J7120; Q9967; 0202U; 87086

== ENCOUNTER 2021-01-05 06:09 | Day surgery (SDC) | payer MEDICARE ==
[2021-01-05] MEDS ORDERED: LACTATED RINGERS 1,000 ML IV ONE ×2 (07:08→10:26)
[2021-01-05] MEDS ORDERED: ceFAZolin 2 GM/50 ML 2 GM/50 ML BAG IV ONE (07:16)
[2021-01-05] MEDS ORDERED: metroNIDAZOLE 500 MG/100 ML 500 MG/100 ML BAG ONE (07:17)
[2021-01-05 07:31] LABS: B. PARAPERTUSSIS- RESP PCR PAN NOT DETECTED; B. PERTUSSIS- RESP PCR PANEL NOT DETECTED; C. PNEUMONIAE- RESP PCR PANEL NOT DETECTED; CORONAVIRUS 229E-RESP PCR NOT DETECTED; CORONAVIRUS HKU1-RESP PCR NOT DETECTED; CORONAVIRUS NL63-RESP PCR NOT DETECTED; CORONAVIRUS OC43-RESP PCR NOT DETECTED; HUMAN METAPNEUMOVIRUS NOT DETECTED; INFLUENZA A- RESP PCR PANEL NOT DETECTED; INFLUENZA B - RESP PCR PANEL NOT DETECTED; M. PNEUMONIAE- RESP PCR PANEL NOT DETECTED; PARAINFLUENZA VIRUS 1 NOT DETECTED; PARAINFLUENZA VIRUS 2 NOT DETECTED; PARAINFLUENZA VIRUS 3 NOT DETECTED; PARAINFLUENZA VIRUS 4 NOT DETECTED; RHINOVIRUS/ENTEROVIRUS NOT DETECTED; RSV- RESP PCR PANEL NOT DETECTED; SARS-CoV-2 -RESP PCR PANEL NOT DETECTED
[2021-01-05] MEDS ORDERED: BUPIVACAINE 0.25% PF 30 ML VIAL ONE (07:56)
[2021-01-05] MEDS ORDERED: LIDOCAINE-MPF 2% 5 ML VIAL ONE (08:10)
[2021-01-05] MEDS ORDERED: PROPOFOL 200 MG/20 ML VIAL IVP ONE (08:10)
[2021-01-05] MEDS ORDERED: ONDANSETRON 4 MG/2 ML VIAL ONE (08:12)
[2021-01-05] MEDS ORDERED: fentaNYL 100 MCG/2 ML VIAL ONE ×3 (08:12→10:07)
[2021-01-05] MEDS ORDERED: DEXAMETHASONE 4 MG/ML VIAL ONE (08:12)
--- NOTE | 2021-01-05 08:24 | ANESTHESIA ---
Pre-Anesthesia VS, & Labs - Diagnosis cholecystitis - Procedure lap candi Vital Signs: Temp Pulse Resp BP Pulse Ox 36.6 C 94 18 112/66 97 01/05/21 06:30 01/05/21 06:30 01/05/21 06:30 01/05/21 06:30 01/05/21 06:30 Height: 6 ft Weight (kg): 82.1 kg Body Mass Index: 24.5 BMI Classification: Healthy weight - NPO >8 hours - Lab Results Lab results reviewed: Yes Home Medications and Allergies [place]-3/Dha/Epa/Fish Oil [Fish Oil 1,000 mg Softgel] 1 cap PO DAILY 12/28/20 Simvastatin [Zocor] 40 mg PO DAILY 12/28/20 Vit A/Vit C/Vit E/Zinc/Copper [Eye Multivitamin Tablet] 1 tab PO BID 12/28/20 Warfarin [Coumadin] 5 mg PO DAILY 12/28/20 Allergies/Adverse Reactions: Allergies Allergy/AdvReac Type Severity Reaction Status Date / Time hydromorphone HCl * Allergy Severe Nausea Verified 12/27/20 21:26 [From Dilaudid] meperidine HCl * Allergy Severe Nausea Verified 12/27/20 21:26 [From Demerol] Anes History & Medical History - Anesthetic History Anesthesia Complications: reports: No previous complications Family history of Anesthesia Complications: Denies Family history of Malignant Hyperthermia: Denies - Medical History Cardiovascular: reports: Hypertension, High cholesterol, Pulmonary embolism Pulmonary: reports: None Gastrointestinal: reports: None Urinary: reports: None Neuro: reports: TIA, Head injury Musculoskeletal: reports: Osteoarthritis Endocrine/Autoimmune: reports: None Skin: reports: None Smoking Status: Never smoker - Surgical History General: reports: Appendectomy, Colonoscopy Eyes Ears Nose Throat (EENT): reports: Tonsil/Adenoidectomy Exam General: Alert, Oriented x3, Cooperative Dental: WNL Mouth Openin Fingerbreadth Neck Mobility: Normal Mallampati classification: II Thyromental Distance: 4-6 cm Respiratory: Lungs clear Plan Anesthesia Type: General Consent for Procedure(s) Verified and Reviewed: Yes Code Status: Attempt Resuscitation ASA classification: 3-Severe systemic disease Is this case an emergency?: No
[2021-01-05] MEDS ORDERED: ePHEDrine 50 MG/ML VIAL IVP ONE (08:50)
[2021-01-05] MEDS ORDERED: ePHEDrine 50 MG/ML VIAL IVP PRN (09:02)
[2021-01-05] MEDS ORDERED: ATROPINE ABBOJECT 1 MG/10 ML SYRINGE IVP PRN (09:02)
[2021-01-05] MEDS ORDERED: HYDROmorphone 0.5 MG/0.5 ML SYRINGE IVP PRN (09:02)
[2021-01-05] MEDS ORDERED: fentaNYL 100 MCG/2 ML VIAL IVP PRN (09:02)
[2021-01-05] MEDS ORDERED: METOCLOPRAMIDE 10 MG/2 ML VIAL IVP PRN (09:02)
[2021-01-05] MEDS ORDERED: MORPHINE 2 MG/ML CARPUJECT IVP PRN (09:02)
[2021-01-05] MEDS ORDERED: NALOXONE 0.4 MG/ML VIAL IVP PRN (09:02)
[2021-01-05] MEDS ORDERED: ONDANSETRON 4 MG/2 ML VIAL IVP PRN ×2 (09:02→10:27)
[2021-01-05] MEDS ORDERED: BUPIVACAINE 0.25% PF 30 ML VIAL SUBQ ONE (09:12)
[2021-01-05] MEDS ORDERED: ESMOLOL 100 MG/10 ML VIAL IVP ONE (09:42)
[2021-01-05] MEDS ORDERED: SUGAMMADEX 200 MG/2 ML VIAL IVP ONE (09:54)
[2021-01-05] MEDS ORDERED: LACTATED RINGERS 1,000 ML IV SCH (10:00)
--- NOTE | 2021-01-05 10:40 | OPERATIVE REPORT ---
Operative Report - General Procedure Date: 01/05/21 Planned Procedure: lap candi with drain placement Pre-Op Diagnosis: cholecystitis Procedure Performed: lap candi and drainage posterior abscess Post Op Diagnosis: cholecystitis with posterior/ liver bed abscess - Procedure Note Primary Surgeon: khanh curry Secondary Surgeon: ayesha Anesthesia Technique: General ET tube, Local Pathology: gb Estimated Blood Loss (mL): 50 Drain/Tube Type: Flo Molina drain Indications: cholecystitis Findings: as above Complications: none - Other Other Information/Narrative: The patient was prepped identified brought to the operating room and placed in supine position. He voided prior to surgery. General endotracheal anesthesia was induced and sequential compression devices placed. He was prepped and draped in a sterile fashion and given preoperative antibiotics. His INR at the time of surgery is 2.4. Local anesthetic was given to incision areas. And infraumbilical incision was made and dissection proceeded down to the fascia. The fascia was incised lifted upwards and abdomen entered with a Veress needle. CO2 was insufflated to a pressure of 15. The 11 mm trocar was placed with 30 degree scope. There was no evidence of injury from Veress needle or trocar placement. Under direct vision two 5 mm trochars were placed in the right upper quadrant and an 11 mm trocar was placed in the epigastrium. Omentum was carefully peeled off from the gallbladder. The gallbladder was nearly tense and very thickened. Omentum was further peeled away from the gallbladder exposing the infundibulum. The infundibulum was then retracted right lateral and caudad. With careful dissection mostly blunt and with minimal use of cautery the cystic duct and cystic artery both were clearly identified. A large bare cystic plate area or window was created. The cystic duct was inspected from right lateral and left lateral. The cystic duct and cystic artery were both clipped at the gallbladder and 2-3 times more proximal and sharply divided. Gallbladder was mobilized off from the bed of the liver with hook cautery. The posterior wall of the gallbladder was necrotic and a posterior abscess was present. There was bleeding at the gallbladder fossa area which was controlled with clips. Gallbladder was placed in Endo Catch bag and brought out through an enlarged epigastric trocar site. The abdomen was thoroughly irrigated and hemostasis assured. Surgicel was placed at the liver bed area and 10 flat NIDA placed and brought out through the right upper quadrant trocar site. The drain was secured with a 3-0 nylon suture. The trochars were removed under direct vision and hemostasis assured. Fascia at the larger trocar sites was closed with running 0 Vicryl suture. Subcutaneous tissue was irrigated and skin closed with buried erupted 4-0 Monocryl. Dressings were applied. He tolerated the procedure well,
[2021-01-05] MEDS: metroNIDAZOLE 500 MG/100 ML 500 MG/100 ML BAG IV SCH ×2 (11:22→19:58)
[2021-01-05] MEDS: ceFAZolin 2 GM/50 ML 2 GM/50 ML BAG IV SCH ×3 (12:24→21:00)
--- NOTE | 2021-01-05 13:12 | ANESTHESIA POST OP EVALUATION ---
Anesthesia Post Eval - Post Anesthesia Eval Vitals: Last Vital Signs Temp 36.7 C 01/05/21 12:26 Pulse 67 01/05/21 12:26 Resp 20 01/05/21 12:26 BP 127/63 01/05/21 12:26 Pulse Ox 95 01/05/21 12:26 CV Function Including HR & BP: Stable Pain Control: Satisfactory Nausea & Vomiting: Negative Mental Status: Baseline Respiratory Status: Airway Patent Hydration Status: Satisfactory Anesthesia Complications: None
[2021-01-05] MEDS ORDERED: WARFARIN 5 MG TABLET PO SCH (14:00)
[2021-01-05] MEDS: HYDROcod/ACETAM 5/325 MG TABLET PO PRN (15:56)
[2021-01-05] MEDS ORDERED: ATORVASTATIN 10 MG TABLET PO SCH (21:00)
[2021-01-06] MEDS: metroNIDAZOLE 500 MG/100 ML 500 MG/100 ML BAG IV SCH (02:38)
[2021-01-06] MEDS: HYDROcod/ACETAM 5/325 MG TABLET PO PRN ×3 (02:41→10:18)
[2021-01-06] MEDS: ceFAZolin 2 GM/50 ML 2 GM/50 ML BAG IV SCH (08:30)
[2021-01-06 08:37] VITALS: BP 110/58
== END 2021-01-06 11:00 | disposition home or self-care (01) ==
LOC: SDS 06:09 → MS2 10:59 → SDS 01-06 11:00
PROVIDERS: ATTEND Surgery
PROC: 0FT44ZZ Resection of Gallbladder, Percutaneous Endoscopic Approach (ICD-10-PCS; principal; 2021-01-05 08:30)
DX: K80.10 Calculus of gallbladder with chronic cholecystitis without obstruction (principal); K65.1 Peritoneal abscess; Z20.822 Contact with and (suspected) exposure to COVID-19; Z86.711 Personal history of pulmonary embolism; Z79.01 Long term (current) use of anticoagulants; Z87.891 Personal history of nicotine dependence
CPT/HCPCS: 47562; 85610; 87631; A9270; J0690; J7120; 0202U

== ENCOUNTER 2021-07-31 10:49 | Emergency (ER) | payer MEDICARE ==
--- NOTE | 2021-07-31 11:26 | ED Physician Documentation ---
History of Present Illness - Stated complaint Stated Complaint: GLF - Chief complaint Chief Complaint: General - History obtained from History obtained from: Patient - Additonal information Additional information: 81-year-old gentleman fell 3 nights ago in his bedroom. Just tripped over his own feet. Landed on his hip and buttock. Pain was not too bad at first and managed with Tylenol but last night pain in the right buttock was more severe. No other injuries. Review of Systems Constitutional: reports: Reviewed and negative Eyes: reports: Reviewed and negative Ears: reports: Reviewed and negative Nose: reports: Reviewed and negative Throat: reports: Reviewed and negative Cardiac: reports: Reviewed and negative Respiratory: reports: Reviewed and negative PD PAST MEDICAL HISTORY - Past Medical History Cardiovascular: Hypertension, High cholesterol, Pulmonary embolism Respiratory: None Neuro: TIA, Head injury Endocrine/Autoimmune: None GI: None : None HEENT: None Psych: None Musculoskeletal: Osteoarthritis Derm: None - Past Surgical History Past Surgical History: Yes General: Appendectomy, Colonoscopy HEENT: Tonsil/Adenoidectomy - Present Medications Home Medications: Ambulatory Orders Medication Instructions Recorded Confirmed Amox/Clav 875/125 [Augmentin 1 tablet PO Q12H 7 Days #14 tablet 12/28/20 07/12/21 875/125 Tab] [place]-3/Dha/Epa/Fish Oil [Fish Oil 1 cap PO DAILY 12/28/20 07/12/21 1,000 mg Softgel] Simvastatin [Zocor] 40 mg PO DAILY 12/28/20 07/12/21 Vit A/Vit C/Vit E/Zinc/Copper [Eye 1 tab PO BID 12/28/20 07/12/21 Multivitamin Tablet] Warfarin [Coumadin] 5 mg PO DAILY 12/28/20 07/12/21 Amox/Clav 875/125 [Augmentin 1 tablet PO Q12H 5 Days #10 tablet 01/05/21 07/12/21 875/125 Tab] HYDROcod/ACETAM 5/325 [[place] 5/325] 1 each PO Q6H PRN #25 tablet 01/05/21 07/12/21 Ondansetron Odt [Zofran Odt] 4 mg PO Q6H PRN #15 tablet 01/05/21 07/12/21 HYDROcod/ACETAM 5/325 [[place] 5/325] 1 - 2 tab PO Q6H PRN #15 tablet 07/31/21 - Allergies Allergies/Adverse Reactions: Allergies Allergy/AdvReac Type Severity Reaction Status Date / Time hydromorphone HCl * Allergy Severe Nausea Verified 07/31/21 11:02 [From Dilaudid] meperidine HCl * Allergy Severe Nausea Verified 07/31/21 11:02 [From Demerol] - Social History Does the pt smoke?: No Smoking Status: Former smoker Does the pt drink ETOH?: Yes Does the pt have substance abuse?: No - Immunizations Immunizations are current?: No PD ED PE NORMAL - Vitals Vital signs reviewed: Yes - General General: Alert and oriented X 3, No acute distress - Neck Neck: Supple, no meningeal sign, No bony TTP, C-Spine cleared by NEXUS criteria - Extremities Extremities: Other (The lateral hip and pelvis anteriorly and laterally are nontender and relatively painless with internal and external rotation of the right hip. There is bruising and contusion which is tender to the lower buttock and upper posterior thigh.) - Neuro Neuro: Alert and oriented X 3, Normal speech Results - Vitals Vitals: Vital Signs - 24 hr 07/31/21 10:57 Temperature 36.4 C L Heart Rate 81 Respiratory 18 Rate Blood Pressure 136/71 H O2 Saturation 98 Oxygen O2 Source Room air - Rads (name of study) R hip xr Radiology: EMP read contemporaneously Departure - Departure Disposition: 01 Home, Self Care Clinical Impression: Contusion of buttock Qualifiers: Encounter type: initial encounter Qualified Code(s): S30.0XXA - Contusion of lower back and pelvis, initial encounter Condition: Good Record reviewed to determine appropriate education?: Yes Instructions: ED Contusion Soft Tissue Prescriptions: HYDROcod/ACETAM 5/325 [[place] 5/325] 1 - 2 tab PO Q6H PRN #15 tablet PRN Reason: Pain Comments: I sent your prescription electronically to [facility] in [place]. As discussed both clinically and with a negative x-ray you have a contusion of your buttock and upper hamstring on your right leg. You can ice. Fine to walk and bear weight as needed. Follow-up with your doctor if not improving within the week. When pain is not severe take Tylenol and/or ibuprofen as needed [id number]. I am prescribing a short course of narcotic pain medication for you. These are potentially dangerous and addictive medications that should be used carefully. These medications may constipate you. Take an gyyl-aue-ybychvw stool softener (docusate) twice daily with plenty of water while taking these medications. If you go 24 hours without a bowel movement, take gujh-rol-ockfgsh miralax, per package instructions. Do not drink or drive while taking these medications. If you received narcotic or sedating medications while in the emergency department, do not drive for 24 hours. Store this medication in a safe, secure place and out of reach of children. It is a violation of federal law to give or sell this medication to another person or to use in a manner other than prescribed. The ED will not refill narcotic prescriptions, including prescriptions lost or stolen. To dispose of unwanted medications: 1. [facility] [address] in [place] has a medication drop box. They accept prescription medications (in pill form) Sunday through Sunday 9:00 a.m. to 5:00 p.m. 2. [facility] accepts prescription medications (in pill form only) for disposal year round. Call for more information. 3. Contact the [facility] for the next [facility] sponsored prescription drug collection event. , [phone], or [phone]; Note that many narcotic pain relievers also contain Tylenol/acetaminophen. Please ensure that your total dose of acetaminophen from all sources does not exceed 3 g (3000 mg) per day.
--- NOTE | 2021-07-31 12:19 | XRAY Report ---
PROCEDURE: Hip w/Pelvis 2-3V RT INDICATIONS: hip injury TECHNIQUE: AP pelvis with lateral view(s) of the right hip(s). COMPARISON: None. FINDINGS: Bones: No fractures or dislocations. Pelvic ring appears intact. No suspicious bony lesions. Mild degenerative changes of the hips. Soft tissues: The visualized bowel gas pattern is normal. No suspicious soft tissue calcifications. Enthesophyte formation of the greater trochanters. Benign-appearing soft tissue calcification adjac ent to the left hip. IMPRESSION: No acute osseous abnormality. Reviewed by: Bandar Garcia DO on 07/31/2021 11:17 AM [facility] Approved by: Bandar Garcia DO on 07/31/2021 11:17 AM [facility] Station ID: [id number]
[2021-07-31 12:42] VITALS: BP 142/79
== END 2021-07-31 12:39 | disposition home or self-care (01) ==
LOC: ED 10:49
DX: S30.0XXA Contusion of lower back and pelvis, initial encounter (principal); W01.0XXA Fall on same level from slipping, tripping and stumbling without subsequent striking against object, initial encounter; Y92.003 Bedroom of unspecified non-institutional (private) residence as the place of occurrence of the external cause; Z87.891 Personal history of nicotine dependence; I10 Essential (primary) hypertension
CPT/HCPCS: 99283

== ENCOUNTER 2022-11-29 11:31 | Outpatient (CLI) | payer MEDICARE ==
[2022-11-29 11:55] LABS: CREATININE 0.8 mg/dL (0.6-1.2)
[2022-11-29] MEDS ORDERED: iohexoL-300 100 ML VIAL ONE (12:12)
[2022-11-29] MEDS ORDERED: iohexoL-300 100 ML VIAL IVP ONE (12:57)
--- NOTE | 2022-11-29 16:59 | CT Report ---
PROCEDURE: ANGIO NECK W INDICATIONS: STROKE CONTRAST: 80ml Omnipaque 300 TECHNIQUE: After the administration of intravenous contrast, 1.5 mm axial sections acquired from the aortic arch to the [place]. Coronal 3-D maximum intensity projection (MIP) and/or volume rendering ref ormats were then performed. For radiation dose reduction, the following was used: automated exposur e control, adjustment of mA and/or kV according to patient size. COMPARISON: CT dated 09/21/2022 FINDINGS: Image quality: Excellent. Carotid system: The great vessels demonstrate a conventional anatomy as they arise from the aortic a rch. The origins of the common carotid arteries appear patent. The common carotid arteries demonstr ate normal calibers and courses. The bifurcation regions appear normal bilaterally. Roughly 20% calc ific stenosis of the proximal bilateral internal carotid arteries.. Posterior circulation: The origins of the vertebral arteries appear patent. High-grade stenosis with in the distal right vertebral artery is present, as before. Left vertebral artery is patent. Soft tissues: Visualized neck soft tissues demonstrate no suspicious abnormalities. The thyroid is normal in size and there are no incidental findings. Bones: No suspicious bony lesions. Visualized cervical spine appears normally aligned. IMPRESSION: 1. 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 2. High-grade distal right vertebral artery stenosis, as before. 3. No change compared to 09/22/2022. The estimate of stenosis included in the report of the imaging study was calculated using the NASCET method Reviewed by: Constantino Raphael MD on 11/29/2022 4:58 PM PDT Approved by: Constantino Raphael MD on 11/29/2022 4:58 PM PDT Station ID: [id number]
--- NOTE | 2022-11-29 16:59 | CT Report ---
PROCEDURE: ANGIO HEAD W/WO INDICATIONS: STROKE CONTRAST: 80ml Omnipaque 300 TECHNIQUE: Precontrast 4.5 mm thick angled axial sections acquired from the foramen magnum to the vertex. Afte r the administration of intravenous contrast, 1 mm thick sections acquired through the [place] of [place] is. Postcontrast 4.5 mm thick sections then re-acquired from the foramen magnum to the vertex. 3-di mensional rutpfhj-nfjtktyma-ohhjstomhm (MIP) and/or volume rendering reformats were acquired of the c entral intracranial vasculature. For radiation dose reduction, the following was used: automated ex posure control, adjustment of mA and/or kV according to patient size. COMPARISON: CT examination dated 09/22/2022 FINDINGS: Image quality: Degraded by motion artifact. Anterior circulation: Mild calcific stenosis of the cavernous segments of the internal carotid arteri es bilaterally.. The flow within the paired anterior cerebral arteries is normal and symmetric. The flow within the middle cerebral arteries is normal and symmetric. The anterior communicating artery is seen. No aneurysms are seen. Posterior circulation: High-grade stenosis within the distal right vertebral artery, as before. Left vertebral artery is patent. Basilar artery is patent. Flow within the posterior cerebral arteries is normal and symmetric. No aneurysms are seen. CSF spaces: Ventricles are normal in size and shape. Basal cisterns are patent. No extra-axial flu id collections. Brain: No midline shift. No intracranial bleeds or masses. Gilliland-white matter interface appears int act. Skull and face: Calvarium and facial bones appear intact, without suspicious lesions. Sinuses: Visualized sinuses and mastoids are clear. IMPRESSION: 1. No significant internal carotid artery stenosis bilaterally. 2. High-grade distal right vertebral artery stenosis. Patent left vertebral artery. 3. Otherwise negative CT angiography of the head. No change compared to 09/22/2022. Reviewed by: Constantino Raphael MD on 11/29/2022 4:58 PM PDT Approved by: Constantino Raphael MD on 11/29/2022 4:58 PM PDT Station ID: [id number]
== END 2022-11-29 11:32 | disposition home or self-care (01) ==
LOC: LAB 11:31
PROVIDERS: ATTEND Internal Medicine
DX: I65.01 Occlusion and stenosis of right vertebral artery (principal); I65.23 Occlusion and stenosis of bilateral carotid arteries; I63.9 Cerebral infarction, unspecified
CPT/HCPCS: 36415; 70496; 70498; 82565; Q9967

== ENCOUNTER 2022-11-30 13:43 | Emergency (ER) | payer MEDICARE ==
[2022-11-30 13:51] VITALS: BP 128/73
[2022-11-30 14:08] LABS: BASOPHILS # (AUTO) 0.1 10^3/uL (0.0-0.1); BASOPHILS % (AUTO) 0.7 %; EOSINOPHILS # (AUTO) 0.4 10^3/uL (0.0-0.7); EOSINOPHILS % (AUTO) 3.6 %; HCT - HEMATOCRIT 41.6 % (42.0-52.0); HGB - HEMOGLOBIN 13.8 g/dL (14.0-18.0); LYMPHOCYTES # (AUTO) 2.5 10^3/uL (1.5-3.5); LYMPHOCYTES % (AUTO) 22.9 %; MEAN CORPUSCULAR HEMOGLOBIN 31.9 pg (27.0-31.0); MEAN CORPUSCULAR HGB CONC 33.2 g/dL (32.0-36.0); MEAN CORPUSCULAR VOLUME 96.3 fL (80.0-94.0); MEAN PLATELET VOLUME 10.2 fL (7.4-11.4); MONOCYTES # (AUTO) 0.9 10^3/uL (0.0-1.0); MONOCYTES % (AUTO) 8.6 %; NEUTROPHILS # (AUTO) 6.8 10^3/uL (1.5-6.6); NEUTROPHILS % (AUTO) 63.9 %; PLT - PLATELET COUNT 207 10^3/uL (130-450); RED BLOOD COUNT 4.32 10^6/uL (4.70-6.10); RED CELL DISTRIBUTION WIDTH 13.8 % (12.0-15.0); WHITE BLOOD COUNT 10.7 x10^3/uL (4.8-10.8)
--- NOTE | 2022-11-30 14:09 | ED Physician Documentation ---
History of Present Illness - Stated complaint Stated Complaint: DISORIENTATION - Chief complaint Chief Complaint: Neuro - Additonal information Additional information: 82-year-old male comes to the emergency department for confusion. He drove himself here. He states that today he was driving to his friend's house where he goes almost every day and he got lost in [place]. He called his friend and his friend came to him and they both drove in separate cars to the friend's house. After visiting while the patient drove himself home but when he had discussed with other friends the confusion today they advised him to come to the ER. I did see this patient in late September after syncope and a fall. He is known to have factor V Leiden deficiency on Coumadin. He does live independently in [place]. He tells me his is currently in [place] visiting family in his son lives in [place]. With previous ED visit we had discussed with both patient and his son that he was likely developing dementia and should no longer be driving however the patient continues to drive Here in the ER he is nonfocal. No lateralizing signs. Denies any headache chest pain or shortness of air. Here he appears remarkably healthy. Review of Systems Constitutional: reports: Reviewed and negative Throat: reports: Reviewed and negative Cardiac: reports: Reviewed and negative Respiratory: reports: Reviewed and negative GI: reports: Reviewed and negative : reports: Reviewed and negative Skin: reports: Reviewed and negative Neurologic: reports: Confused PD PAST MEDICAL HISTORY - Past Medical History Cardiovascular: Hypertension, High cholesterol, Pulmonary embolism Respiratory: None Neuro: TIA, Head injury Endocrine/Autoimmune: None GI: None : None HEENT: None Psych: None Musculoskeletal: Osteoarthritis Derm: None - Past Surgical History Past Surgical History: Yes General: Appendectomy, Colonoscopy HEENT: Tonsil/Adenoidectomy - Present Medications Home Medications: Ambulatory Orders Medication Instructions Recorded Confirmed Simvastatin [Zocor] 40 mg PO DAILY 12/28/20 09/21/22 Vit A/Vit C/Vit E/Zinc/Copper [Eye 1 tab PO BID 12/28/20 09/21/22 Multivitamin Tablet] Warfarin [Coumadin] 5 mg PO DAILY 12/28/20 09/21/22 Omeprazole 40 mg PO DAILY 09/21/22 09/21/22 - Allergies Allergies/Adverse Reactions: Allergies Allergy/AdvReac Type Severity Reaction Status Date / Time hydromorphone HCl * Allergy Severe Nausea Verified 11/30/22 13:47 [From Dilaudid] meperidine HCl * Allergy Severe Nausea Verified 11/30/22 13:47 [From Demerol] - Social History Does the pt smoke?: No Smoking Status: Former smoker Does the pt drink ETOH?: Yes Does the pt have substance abuse?: No - Immunizations Immunizations are current?: No PD ED PE NORMAL - General General: Alert and oriented X 3, No acute distress - HEENT HEENT: Atraumatic, Moist mucous membranes - Neck Neck: Supple, no meningeal sign - Cardiac Cardiac: RRR, No murmur - Respiratory Respiratory: No respiratory distress, Clear bilaterally - Abdomen Abdomen: Normal bowel sounds, Soft, Non tender - Derm Derm: Warm and dry - Extremities Extremities: No deformity, No tenderness to palpate, Normal ROM s pain - Neuro Neuro: Alert and oriented X 3, manager r d 2-12 intact, No motor deficit, No sensory deficit, Normal speech, Other (Patient states it is 1920 when corrected that it was 2022 he agreed. Otherwise no confusion noted) Eye Opening: Spontaneous Motor: Obeys Commands Verbal: Oriented GCS Score: 15 Results - Vitals Vitals: Vital Signs - 24 hr 11/30/22 13:48 Temperature 36.5 C Heart Rate 100 Respiratory 16 Rate Blood Pressure 128/73 O2 Saturation 96 Oxygen O2 Source Room air - Labs Labs: Laboratory Tests 11/30/22 11/30/22 11/30/22 14:03 14:03 14:03 WBC 10.7 RBC 4.32 L Hgb 13.8 L Hct 41.6 L MCV 96.3 H MCH 31.9 H MCHC 33.2 RDW 13.8 Plt Count 207 MPV 10.2 Neut # (Auto) 6.8 H Lymph # (Auto) 2.5 Barren # (Auto) 0.9 Eos # (Auto) 0.4 Baso # (Auto) 0.1 Absolute Nucleated RBC 0.00 Nucleated RBC % 0.0 PT 18.7 H INR 1.7 H Sodium 142 Potassium 3.8 Chloride 107 Carbon Dioxide 24 Anion Gap 11.0 BUN 23 H Creatinine 0.9 Estimated GFR (MDRD) 81 L Glucose 124 H Calcium 8.6 Total Bilirubin 0.6 AST 34 ALT 49 Alkaline Phosphatase 62 Total Protein 7.0 Albumin 3.7 Globulin 3.3 Albumin/Globulin Ratio 1.1 Lipase 35 PD Medical Decision Making - ED course Complexity details: reviewed results, re-evaluated patient, d/w patient, other (Spoke with patient's son Brad with the patient's permission who currently is in [place]) ED course: 82-year-old male drove himself to the ER for evaluation as he became acutely confused and disoriented when driving in [place] this morning. He was able to call his friend who got him directed back to his house. The patient subsequently drove from his friend's house back to his own residence and then now to the ER. On presentation he is alert and well-appearing. He does answer all the questions correctly but when asked what year it was he stated 1920. When corrected to 2022 he agreed. He has no obvious focal deficits. Clinically the patient does not have any focal or lateralizing deficits to suggest acute stroke or infarction. I did obtain CBC and electrolytes and per my interpretation no acute worrisome findings or metabolic cause as the reason for the brief period of disorientation. However I did see this patient in late September after a fall and syncope. It was discussed with the patient's son Brad at that time that the patient was likely beginning to have memory changes consistent with dementia. The patient asked me to call the son today and I did speak with him on the phone. He is flying out to the [place] on Sunday to be with his dad for the next several days. Patient's is currently in [place] for 6 weeks. I discussed with the son my concern that his father is likely developing dementia and confusion. I also expressed my concern that I did not feel his father should be driving anymore. He agreed without statements said that his father would never stop driving. He did ask me to complete a report form to the [facility] department of licensing which I have done. At this time however the patient is stable and safe to be discharged home. I have asked the patient to have a friend pick him up so that he does not drive home. Usual emergent return precautions were discussed. Departure - Departure Disposition: 01 Home, Self Care Clinical Impression: Confusion and disorientation Condition: Stable Record reviewed to determine appropriate education?: Yes Comments: Kevin you are seen today in the emergency department because you became confused and disoriented when you are driving in [place]. You did have CT scans completed of your head and neck yesterday that are essentially unchanged from September. However as we have discussed at the bedside I am concerned that your confusion and disorientation that does seem to be intermittent right now is a sign of dementia. I do not feel that you are safe to be driving independently anymore. I do ask you not to drive at all. I have made a report to the [facility] department of licensing reporting my concerns. It is important that you continue to discuss your change in mental status with your primary care provider. Return to the ER if you ever develop slurred speech, have facial droop, sudden weakness in your arms or legs.
[2022-11-30 14:15] LABS: INR 1.7 (0.8-1.2); PT - PROTHROMBIN TIME 18.7 secs (9.9-12.6)
[2022-11-30 14:20] LABS: ALBUMIN 3.7 g/dL (3.2-5.5); ALBUMIN/GLOBULIN RATIO 1.1 (1.0-2.2); BILIRUBIN,TOTAL 0.6 mg/dL (0.2-1.0); CALCIUM 8.6 mg/dL (8.5-10.3); CREATININE 0.9 mg/dL (0.6-1.2); POTASSIUM 3.8 mmol/L (3.5-5.0)
== END 2022-11-30 15:48 | disposition home or self-care (01) ==
LOC: ED 13:43
DX: R41.0 Disorientation, unspecified (principal); D68.51 Activated protein C resistance; Z79.01 Long term (current) use of anticoagulants; Z87.891 Personal history of nicotine dependence
CPT/HCPCS: 36415; 80053; 83690; 85025; 85610; 99283

== ENCOUNTER 2023-01-26 07:29 | Outpatient (CLI) | payer MEDICARE ==
--- NOTE | 2023-01-26 14:53 | Ultrasound Report ---
PROCEDURE: Abdomen Complete INDICATIONS: IBS TECHNIQUE: Real-time scanning was performed of the abdominal and retroperitoneal organs, with image documentatio n. COMPARISON: None. FINDINGS: Liver: Liver is normal in size and homogeneous in echotexture. Gallbladder: Absent. Biliary ducts: Intrahepatic bile ducts are non-dilated. Extrahepatic bile duct caliber measures 5.6 mm. Normal is 6-7 mm or less in diameter, or 10 mm or less post-cholecystectomy. Pancreas: Visualized portions of the pancreas are sonographically normal. Spleen: Spleen is normal in size and homogeneous in echotexture. Kidneys: Kidneys are normal in size and echotexture. Right kidney measures 10.6 cm long; left kidne y measures 10.5 cm long. No hydronephrosis or nephrolithiasis. No solid masses. Simple cyst is seen in midpole of left kidney measures 1.7 x 1.8 x 1.8 cm in size. No complex renal cystic lesions which require follow-up. Aorta: Visualized aorta is normal in caliber at less than 3 cm. Iliacs: Proximal common iliac arteries are normal in caliber at less than 2.5 cm. IVC: Intrahepatic inferior vena cava is patent. Miscellaneous: No free abdominal fluid. IMPRESSION: 1. Prior cholecystectomy. No biliary ductal dilatation. 2. Simple cyst in left kidney. No hydronephrosis or nephrolithiasis. 3. Rest of the exam is unremarkable. Reviewed by: Maikel Bertrand MD on 01/26/2023 2:52 PM PDT Approved by: Maikel Bertrand MD on 01/26/2023 2:52 PM PDT Station ID: [id number]
== END 2023-01-26 07:30 | disposition home or self-care (01) ==
LOC: DI 07:29
PROVIDERS: ATTEND Internal Medicine
DX: K58.8 Other irritable bowel syndrome (principal); N28.1 Cyst of kidney, acquired; Z90.49 Acquired absence of other specified parts of digestive tract

== ENCOUNTER 2023-02-22 10:12 | Outpatient (CLI) | payer MEDICARE | END 2023-02-22 10:13 | disposition home or self-care (01) | LOC: RT 10:12 | PROVIDERS: ATTEND Internal Medicine | DX: R00.2 Palpitations (principal) | CPT/HCPCS: 93005 ==

== ENCOUNTER 2023-03-19 11:11 | Outpatient (CLI) | payer MEDICARE | END 2023-03-19 11:12 | disposition home or self-care (01) | LOC: LAB.N 11:11 | PROVIDERS: ATTEND Internal Medicine | DX: Z79.01 Long term (current) use of anticoagulants (principal); D68.51 Activated protein C resistance | CPT/HCPCS: 36416; 85610 ==

== ENCOUNTER 2023-03-29 08:00 | Outpatient (CLI) | payer MEDICARE | END 2023-03-29 23:59 | disposition home or self-care (01) | LOC: LAB.N 08:00 | PROVIDERS: ATTEND Internal Medicine | DX: Z79.01 Long term (current) use of anticoagulants (principal); D68.51 Activated protein C resistance | CPT/HCPCS: 36416; 85610 ==

== ENCOUNTER 2023-04-06 10:44 | Outpatient (CLI) | payer MEDICARE | END 2023-04-06 10:45 | disposition home or self-care (01) | LOC: LAB.N 10:44 | PROVIDERS: ATTEND Internal Medicine | DX: Z79.01 Long term (current) use of anticoagulants (principal); D68.51 Activated protein C resistance | CPT/HCPCS: 36416; 85610 ==

== ENCOUNTER 2023-04-23 11:39 | Outpatient (CLI) | payer MEDICARE | END 2023-04-23 11:40 | disposition home or self-care (01) | LOC: LAB.N 11:39 | PROVIDERS: ATTEND Internal Medicine | DX: Z79.01 Long term (current) use of anticoagulants (principal); D68.51 Activated protein C resistance | CPT/HCPCS: 36416; 85610 ==

== ENCOUNTER 2023-05-03 08:00 | Outpatient (CLI) | payer MEDICARE ==
[2023-05-03 12:31] LABS: CALCIUM 9.3 mg/dL (8.5-10.3); CREATININE 1.1 mg/dL (0.6-1.3); POTASSIUM 4.2 mmol/L (3.5-4.5)
== END 2023-05-03 23:59 | disposition home or self-care (01) ==
LOC: LAB.N 08:00
PROVIDERS: ATTEND Internal Medicine
DX: D68.51 Activated protein C resistance (principal); G45.4 Transient global amnesia; R07.9 Chest pain, unspecified
CPT/HCPCS: 36415; 80048; 83880

== ENCOUNTER 2023-05-05 14:17 | Emergency (ER) | payer MEDICARE ==
--- NOTE | 2023-05-05 14:35 | ED Physician Documentation ---
PD HPI DYSPNEA - Stated complaint Stated Complaint: SOA - Chief complaint Chief Complaint: Cardiac - History obtained from History obtained from: Patient - History of Present Illness Timing - onset: How many months ago (has had some element of exertional dyspnea and even rest dyspnea for months, worse the past 2-3 weeks. Had COVID in October 2022 but dyspnea not worse at that time but started over summer.) Timing - duration: Months Timing - details: Gradual onset, Still present, Waxing and waning Inciting event(s): No: URI, Immobilization/travel Improved by: Rest. No: Lasix (he states Dr. Bautista started Lasix 2 days ago for possible CHF, but no change in symptoms.), Sitting up Worsened by: Exertion, Coughing. No: Laying flat Associated symptoms: Wheezing. No: Fever, Cough, Chest pain / discomfort, Bilateral edema Similar symptoms before: Has not had sx before Recently seen: Clinic (labs done outpt 2 days ago. CXR few weeks ago. ECG in office recent.) Review of Systems Constitutional: denies: Fever, Chills, Myalgias Nose: denies: Rhinorrhea / runny nose, Congestion Throat: denies: Sore throat Cardiac: denies: Chest pain / pressure, Palpitations, Pedal edema, Calf pain Respiratory: reports: Dyspnea, Cough (nonproductive intermittent), Wheezing GI: denies: Abdominal Pain, Vomiting, Diarrhea, Bloody / black stool Musculoskeletal: denies: Extremity swelling PD PAST MEDICAL HISTORY - Past Medical History Cardiovascular: Hypertension, High cholesterol, Pulmonary embolism Respiratory: None Neuro: TIA, Head injury Endocrine/Autoimmune: None GI: None : None HEENT: None Psych: None Musculoskeletal: Osteoarthritis Derm: None - Past Surgical History Past Surgical History: Yes General: Appendectomy, Colonoscopy HEENT: Tonsil/Adenoidectomy - Present Medications Home Medications: Ambulatory Orders Medication Instructions Recorded Confirmed Simvastatin [Zocor] 40 mg PO DAILY 12/28/20 09/21/22 Vit A/Vit C/Vit E/Zinc/Copper [Eye 1 tab PO BID 12/28/20 09/21/22 Multivitamin Tablet] Warfarin [Coumadin] 5 mg PO DAILY 12/28/20 09/21/22 Omeprazole 40 mg PO DAILY 09/21/22 09/21/22 Albuterol Sulf [Ventolin Hfa 2 puffs INH QID 30 Days #1 each 05/05/23 Inhaler] Beclomethasone 40 Mcg [Qvar 40] 1 puffs INH BID 30 Days #0.6 gm 05/05/23 dexAMETHasone [Decadron] 4 mg PO DAILY #5 tablet 05/05/23 - Allergies Allergies/Adverse Reactions: Allergies Allergy/AdvReac Type Severity Reaction Status Date / Time hydromorphone HCl * Allergy Severe Nausea Verified 05/05/23 14:33 [From Dilaudid] meperidine HCl * Allergy Severe Nausea Verified 05/05/23 14:33 [From Demerol] - Social History Does the pt smoke?: No Smoking Status: Former smoker Does the pt drink ETOH?: Yes Does the pt have substance abuse?: No - Immunizations Immunizations are current?: No PD ED PE NORMAL - Vitals Vital signs reviewed: Yes - General General: Alert and oriented X 3, No acute distress, Well developed/nourished - HEENT HEENT: Pharynx benign - Neck Neck: Supple, no meningeal sign, No adenopathy, No JVD - Cardiac Cardiac: RRR, No murmur - Respiratory Respiratory: Clear bilaterally - Abdomen Abdomen: Soft, Non tender - Derm Derm: Normal color, Warm and dry - Extremities Extremities: No edema, No calf tenderness / cord - Neuro Neuro: Alert and oriented X 3 (defers to to answer historical questions c/w dementia/memory deficit.), No motor deficit, No sensory deficit, Normal speech Results - Vitals Vitals: Vital Signs - 24 hr 05/05/23 05/05/23 05/05/23 14:29 15:19 18:00 Temperature 36.5 C Heart Rate 98 80 70 Respiratory 24 20 18 Rate Blood Pressure 122/69 140/78 H O2 Saturation 97 96 05/05/23 19:00 Temperature Heart Rate 72 Respiratory 20 Rate Blood Pressure 136/78 H O2 Saturation 97 Oxygen O2 Source Room air - EKG (time done) 14:38 EKG releavant findings:: EKG personally interpreted by author of this note. Relevant findings are: Rate: Rate (enter#) (74) Rhythm: NSR, Other (PVCs) Intervals: Normal [place] QRS: Normal Ischemia: ST depression (borderline lead II. ). No: ST elevation c/w ischemia - Labs Labs: Laboratory Tests 05/05/23 05/05/23 05/05/23 15:25 15:25 15:25 WBC 13.2 H RBC 4.61 L Hgb 14.9 Hct 45.2 MCV 98.0 H MCH 32.3 H MCHC 33.0 RDW 14.0 Plt Count 170 MPV 10.7 Neut # (Auto) 8.3 H Lymph # (Auto) 3.4 Heard # (Auto) 1.1 H Eos # (Auto) 0.3 Baso # (Auto) 0.1 Absolute Nucleated RBC 0.00 Nucleated RBC % 0.0 PT INR Sodium 142 Potassium 3.8 Chloride 107 Carbon Dioxide 27 Anion Gap 8.0 BUN 26 H Creatinine 1.1 Estimated GFR (MDRD) 64 L Glucose 141 H Calcium 9.0 Magnesium 2.0 B-Natriuretic Peptide 110 H TSH 2.58 05/05/23 15:25 WBC RBC Hgb Hct MCV MCH MCHC RDW Plt Count MPV Neut # (Auto) Lymph # (Auto) Heard # (Auto) Eos # (Auto) Baso # (Auto) Absolute Nucleated RBC Nucleated RBC % PT 35.1 H INR 3.5 H Sodium Potassium Chloride Carbon Dioxide Anion Gap BUN Creatinine Estimated GFR (MDRD) Glucose Calcium Magnesium B-Natriuretic Peptide TSH - Rads (name of study) chest xray Relevant Findings:: Prelim report reviewed (no acute cardiopumonary process), EMP independent interpretation of test chest CT-A Relevant Findings:: Prelim report reviewed (no pulmonary emboli, no acute lung process. ), EMP independent interpretation of test PD Medical Decision Making - ED course Complexity details: reviewed results (not anemic. Lytes are good. BNP normal range and CXR without signs of vascular congestion. CT-A of chest did not show occult lesions nor PEs. Consider use of MDI to see how does with symptosm.), considered differential (clinically does not seem CHF. Consider persistent RAD/bronchial sympotms from prior viral illness. 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 Consider lung process such as fibrosis, etc. consider anemia. ), d/w patient, d/w family (spouse helps with historical info due to pt some dementia. ) Departure - Departure Disposition: 01 Home, Self Care Clinical Impression: Dyspnea, Reactive airway disease Clinical Impression: (Ruled Out): Congestive heart failure Condition: Stable Record reviewed to determine appropriate education?: Yes Instructions: ED Dyspnea Shortness of Breath Follow-Up: Apurva Bautista MD [Primary Care Provider] - Prescriptions: dexAMETHasone [Decadron] 4 mg PO DAILY #5 tablet Beclomethasone 40 Mcg [Qvar 40] 1 puffs INH BID 30 Days #0.6 gm Albuterol Sulf [Ventolin Hfa Inhaler] 2 puffs INH QID 30 Days #1 each Comments: Your blood tests including blood count and chemistry panel, electrolytes, BNP are normal. No signs of anemia, electrolyte problems and no indication for congestive heart failure, fluid overload. Your chest x-ray does not show any signs of pneumonia/fluid overload/tumors etc. No signs of blood clots. At this point I would suggest perhaps holding your new Lasix medication for now until further discussion with Dr. Apurva Bautista. I would instead redirect treatment to possibly bronchial/reactive airway such as asthma like condition with inhaled albuterol plus steroid as directed. Can also try oral steroid daily for several days to treat presumed bronchial inflam mation. Follow-up with Dr. Apurva Bautista. I sent your prescriptions to your preferred pharmacy. Forms: PCP List Discharge Date/Time: 05/05/23 19:06
[2023-05-05] MEDS ORDERED: ALBUTEROL 1 PUFF INH STA (15:04)
[2023-05-05 15:31] LABS: BASOPHILS # (AUTO) 0.1 10^3/uL (0.0-0.1); BASOPHILS % (AUTO) 0.6 %; EOSINOPHILS # (AUTO) 0.3 10^3/uL (0.0-0.7); EOSINOPHILS % (AUTO) 2.1 %; HCT - HEMATOCRIT 45.2 % (42.0-52.0); HGB - HEMOGLOBIN 14.9 g/dL (14.0-18.0); LYMPHOCYTES # (AUTO) 3.4 10^3/uL (1.5-3.5); LYMPHOCYTES % (AUTO) 25.9 %; MEAN CORPUSCULAR HEMOGLOBIN 32.3 pg (27.0-31.0); MEAN PLATELET VOLUME 10.7 fL (7.4-11.4); MONOCYTES # (AUTO) 1.1 10^3/uL (0.0-1.0); MONOCYTES % (AUTO) 8.3 %; NEUTROPHILS # (AUTO) 8.3 10^3/uL (1.5-6.6); NEUTROPHILS % (AUTO) 62.7 %; PLT - PLATELET COUNT 170 10^3/uL (130-450); RED BLOOD COUNT 4.61 10^6/uL (4.70-6.10); WHITE BLOOD COUNT 13.2 x10^3/uL (4.8-10.8)
--- NOTE | 2023-05-05 15:32 | XRAY Report ---
PROCEDURE: Chest 1 View X-Ray INDICATIONS: chest pain TECHNIQUE: One view of the chest was acquired. COMPARISON: 02/22/2023, 09/21/2022 FINDINGS: Surgical changes and devices: None. Lungs and pleura: An incomplete inspiratory result is noted, with low lung volumes and crowding of t he vascular markings. No focal infiltrates are seen. No large pneumothorax or large pleural effusion can be seen. Mediastinum: Mediastinal contours appear normal. Heart size is normal. Bones and chest wall: No suspicious bony lesions. Age-appropriate degenerative changes are seen. Overlying soft tissues appear unremarkable. IMPRESSION: Limited portable chest examination, without an acute abnormality identified. Reviewed by: Lowell Dee MD on 05/05/2023 2:30 PM AKDT Approved by: Lowell Dee MD on 05/05/2023 2:30 PM AKDT Station ID: [id number]
[2023-05-05 15:45] LABS: CREATININE 1.1 mg/dL (0.6-1.3); POTASSIUM 3.8 mmol/L (3.5-4.5)
[2023-05-05 15:54] LABS: INR 3.5 (0.8-1.2); PT - PROTHROMBIN TIME 35.1 secs (9.9-12.6)
[2023-05-05 16:02] LABS: THYROID STIMULATING HORMONE 2.58 uIU/mL (0.34-5.60)
--- NOTE | 2023-05-05 18:33 | CT Report ---
PROCEDURE: ANGIO CHEST W/WO INDICATIONS: increasing dyspnea for weeks/month CONTRAST: 1100ml omni 300 TECHNIQUE: After the administration of intravenous contrast, 2 mm axial images were acquired from the pulmonary apices to the posterior costophrenic angles during the arterial phase. In addition, 1 mm lung kernel and 5 mm soft tissue kernel reconstructions were performed. 3-dimensional coronal oblique maximum int ensity projection (MIP) reformats, 8 mm axial MIP, and 5 mm coronal and sagittal MPR reformats were t hen performed through the thorax. For radiation dose reduction, the following was used: automated exp osure control, adjustment of mA and/or kV according to patient size. COMPARISON: Correlation is made with the accompanying chest radiograph. Correlation is made with [facility] CT, 10/09/2022. FINDINGS: Image quality: Diagnostic. Large vessels: No filling defects within the opacified pulmonary arteries, accounting for motion and contrast timing. No evidence of acute aortic syndrome or aortic aneurysm. Lungs and pleura: No consolidation. No pleural effusions. No pneumothorax. Mild thickening is seen a long the right minor fissure, which is not regarded pathologic, as seen on series 4 image 150 and on series 6 image 55. Likely mild atelectasis can be seen dependently at the lung bases. Mediastinum: Heart size is normal. No pericardial effusion. No large vessel abnormality. No mediastin al adenopathy by size criteria. Chest wall and lower neck: Thyroid is unremarkable. No axillary or supraclavicular adenopathy by size . Gynecomastia is incidentally noted. Bones: No aggressive osseous abnormality. Age-appropriate degenerative changes are seen. Upper Abdomen: Cholecystectomy clips are seen. IMPRESSION: No pulmonary embolus. No significant pulmonary abnormality is seen. Additional findings: Cholecystectomy Reviewed by: Lowell Dee MD on 05/05/2023 5:31 PM AKBONNY Approved by: Lowell Dee MD on 05/05/2023 5:31 PM KEENA Station ID: [id number]
[2023-05-05] MEDS ORDERED: dexAMETHasone 4 MG TABLET PO STA (18:35)
[2023-05-05 19:12] VITALS: BP 136/78; O2SAT 97
[2023-05-05] MEDS ORDERED: iohexoL-300 100 ML VIAL IVP ONE (19:14)
== END 2023-05-05 19:06 | disposition home or self-care (01) ==
LOC: ED 14:17
DX: J45.909 Unspecified asthma, uncomplicated (principal); I10 Essential (primary) hypertension; Z87.891 Personal history of nicotine dependence
CPT/HCPCS: 36415; 71045; 71275; 80048; 83735; 83880; 84443; 85025; 85610; 93005; 94640; 99284; J8540; Q9967

== ENCOUNTER 2023-05-15 10:43 | Outpatient (CLI) | payer MEDICARE ==
[2023-05-15 17:42] LABS: INR 1.8 (0.8-1.2)
[2023-05-15 18:12] LABS: CALCIUM 8.8 mg/dL (8.5-10.3); CREATININE 0.9 mg/dL (0.6-1.3); POTASSIUM 4.3 mmol/L (3.5-4.5)
== END 2023-05-15 10:44 | disposition home or self-care (01) ==
LOC: LAB.N 10:43
PROVIDERS: ATTEND Internal Medicine
DX: Z79.01 Long term (current) use of anticoagulants (principal); D68.51 Activated protein C resistance; G45.9 Transient cerebral ischemic attack, unspecified; R07.9 Chest pain, unspecified
CPT/HCPCS: 36415; 80048; 83880; 85610

== ENCOUNTER 2023-06-18 12:57 | Outpatient (CLI) | payer MEDICARE | END 2023-06-18 12:58 | disposition home or self-care (01) | LOC: LAB.N 12:57 | PROVIDERS: ATTEND Internal Medicine | DX: Z79.01 Long term (current) use of anticoagulants (principal); D68.51 Activated protein C resistance | CPT/HCPCS: 36416; 85610 ==

== ENCOUNTER 2023-06-29 12:34 | Outpatient (CLI) | payer MEDICARE | END 2023-06-29 12:35 | disposition home or self-care (01) | LOC: LAB.N 12:34 | PROVIDERS: ATTEND Internal Medicine | DX: Z79.01 Long term (current) use of anticoagulants (principal); D68.51 Activated protein C resistance | CPT/HCPCS: 36416; 85610 ==

== ENCOUNTER 2023-08-03 10:38 | Outpatient (CLI) | payer MEDICARE | END 2023-08-03 10:39 | disposition home or self-care (01) | LOC: LAB.N 10:38 | PROVIDERS: ATTEND Internal Medicine | DX: D68.51 Activated protein C resistance (principal); Z79.01 Long term (current) use of anticoagulants | CPT/HCPCS: 36416; 85610 ==

== ENCOUNTER 2023-08-14 09:17 | Outpatient (CLI) | payer MEDICARE ==
[2023-08-14] MEDS ORDERED: ALBUTEROL 1 PUFF INH STA (12:40)
== END 2023-08-14 09:18 | disposition home or self-care (01) ==
LOC: RT 09:17
PROVIDERS: ATTEND Internal Medicine
DX: R06.02 Shortness of breath (principal)
CPT/HCPCS: 94060; 94727; 94729

== ENCOUNTER 2023-08-31 11:10 | Outpatient (CLI) | payer MEDICARE | END 2023-08-31 11:11 | disposition home or self-care (01) | LOC: LAB.N 11:10 | PROVIDERS: ATTEND Internal Medicine | DX: D68.51 Activated protein C resistance (principal); Z79.01 Long term (current) use of anticoagulants | CPT/HCPCS: 36416; 85610 ==

== ENCOUNTER 2023-09-25 11:26 | Outpatient (CLI) | payer MEDICARE | END 2023-09-25 11:27 | disposition home or self-care (01) | LOC: LAB.N 11:26 | PROVIDERS: ATTEND Internal Medicine | DX: D68.51 Activated protein C resistance (principal); Z79.01 Long term (current) use of anticoagulants | CPT/HCPCS: 36416; 85610 ==

== ENCOUNTER 2023-10-02 13:46 | Outpatient (CLI) | payer MEDICARE ==
[2023-10-02 17:57] LABS: BASOPHILS # (AUTO) 0.1 10^3/uL (0.0-0.1); BASOPHILS % (AUTO) 0.8 %; EOSINOPHILS # (AUTO) 0.4 10^3/uL (0.0-0.7); EOSINOPHILS % (AUTO) 3.5 %; HCT - HEMATOCRIT 43.4 % (42.0-52.0); HGB - HEMOGLOBIN 13.8 g/dL (14.0-18.0); LYMPHOCYTES # (AUTO) 3.1 10^3/uL (1.5-3.5); LYMPHOCYTES % (AUTO) 29.7 %; MEAN CORPUSCULAR HEMOGLOBIN 32.9 pg (27.0-31.0); MEAN CORPUSCULAR HGB CONC 31.8 g/dL (32.0-36.0); MEAN CORPUSCULAR VOLUME 103.6 fL (80.0-94.0); MEAN PLATELET VOLUME 11.1 fL (7.4-11.4); MONOCYTES # (AUTO) 0.9 10^3/uL (0.0-1.0); MONOCYTES % (AUTO) 8.6 %; NEUTROPHILS % (AUTO) 56.8 %; PLT - PLATELET COUNT 202 10^3/uL (130-450); RED BLOOD COUNT 4.19 10^6/uL (4.70-6.10); RED CELL DISTRIBUTION WIDTH 13.9 % (12.0-15.0); WHITE BLOOD COUNT 10.6 x10^3/uL (4.8-10.8)
[2023-10-02 19:08] LABS: ALBUMIN 3.6 g/dL (3.2-5.5); ALBUMIN/GLOBULIN RATIO 1.3 (1.0-2.2); BILIRUBIN,TOTAL 0.8 mg/dL (0.2-1.0); CALCIUM 9.1 mg/dL (8.5-10.3); CREATININE 0.9 mg/dL (0.6-1.3); TOTAL PROTEIN 6.4 g/dL (6.4-8.9)
== END 2023-10-02 13:47 | disposition home or self-care (01) ==
LOC: LAB.N 13:46
PROVIDERS: ATTEND Internal Medicine
DX: F03.90 Unspecified dementia, unspecified severity, without behavioral disturbance, psychotic disturbance, mood disturbance, and anxiety (principal); D68.51 Activated protein C resistance; I10 Essential (primary) hypertension; Z79.899 Other long term (current) drug therapy
CPT/HCPCS: 36415; 80053; 85025

== ENCOUNTER 2023-10-16 13:18 | Outpatient (CLI) | payer MEDICARE | END 2023-10-16 13:19 | disposition home or self-care (01) | LOC: LAB.N 13:18 | PROVIDERS: ATTEND Internal Medicine | DX: Z79.01 Long term (current) use of anticoagulants (principal); D68.51 Activated protein C resistance | CPT/HCPCS: 36416; 85610 ==

== ENCOUNTER 2023-10-23 15:29 | Outpatient (CLI) | payer MEDICARE | END 2023-10-23 15:30 | disposition home or self-care (01) | LOC: LAB.N 15:29 | PROVIDERS: ATTEND Internal Medicine | DX: D68.51 Activated protein C resistance (principal); Z79.01 Long term (current) use of anticoagulants | CPT/HCPCS: 36416; 85610 ==

== ENCOUNTER 2023-10-30 11:53 | Outpatient (CLI) | payer MEDICARE | END 2023-10-30 11:54 | disposition home or self-care (01) | LOC: LAB.N 11:53 | PROVIDERS: ATTEND Internal Medicine | DX: Z79.01 Long term (current) use of anticoagulants (principal); D68.51 Activated protein C resistance | CPT/HCPCS: 36416; 85610 ==

== ENCOUNTER 2023-11-27 11:57 | Outpatient (CLI) | payer MEDICARE | END 2023-11-27 11:58 | disposition home or self-care (01) | LOC: LAB.N 11:57 | PROVIDERS: ATTEND Internal Medicine | DX: D68.51 Activated protein C resistance (principal); Z79.01 Long term (current) use of anticoagulants | CPT/HCPCS: 36415; 85610 ==

== ENCOUNTER 2023-12-11 18:24 | Emergency (ER) | payer MEDICARE ==
--- NOTE | 2023-12-11 18:31 | ED Physician Documentation ---
PD HPI FOCAL NEURO - Stated complaint Stated Complaint: CONFUSED - History obtained from History obtained from: Patient, EMS - Additional information Additional information: 83-year-old gentleman with dementia brought in by ambulance. Reportedly more confused than normal today. His is not available at initial evaluation but bat lathe operator tells me she is coming in soon. Reportedly was at his baseline yesterday and went to bed in that condition but awoke this morning at 0700 more confused than normal. No obvious stroke symptoms. EMS says that his urine has been dark. PD PAST MEDICAL HISTORY - Past Medical History Cardiovascular: Hypertension, High cholesterol, Pulmonary embolism Respiratory: None Neuro: TIA, Head injury Endocrine/Autoimmune: None GI: None : None HEENT: None Psych: None Musculoskeletal: Osteoarthritis Derm: None - Past Surgical History Past Surgical History: Yes General: Appendectomy, Colonoscopy HEENT: Tonsil/Adenoidectomy - Present Medications Home Medications: Ambulatory Orders Medication Instructions Recorded Confirmed Simvastatin [Zocor] 40 mg PO DAILY 12/28/20 09/21/22 Vit A/Vit C/Vit E/Zinc/Copper [Eye 1 tab PO BID 12/28/20 09/21/22 Multivitamin Tablet] Warfarin [Coumadin] 5 mg PO DAILY 12/28/20 09/21/22 Omeprazole 40 mg PO DAILY 09/21/22 09/21/22 Albuterol Sulf [Ventolin Hfa 2 puffs INH QID 30 Days #1 each 05/05/23 Inhaler] Beclomethasone 40 Mcg [Qvar 40] 1 puffs INH BID 30 Days #0.6 gm 05/05/23 - Allergies Allergies/Adverse Reactions: Allergies Allergy/AdvReac Type Severity Reaction Status Date / Time hydromorphone HCl * Allergy Severe Nausea Verified 12/11/23 18:57 [From Dilaudid] meperidine HCl * Allergy Severe Nausea Verified 12/11/23 18:57 [From Demerol] - Social History Does the pt smoke?: No Smoking Status: Former smoker Does the pt drink ETOH?: Yes Does the pt have substance abuse?: No - Immunizations Immunizations are current?: No PD ED PE NORMAL - Vitals Vital signs reviewed: Yes - General General: Other (He is alert and oriented to person only. He follows simple commands but only intermittently.) - HEENT HEENT: PERRL, EOMI - Neck Neck: Supple, no meningeal sign - Cardiac Cardiac: RRR (Loud systolic murmur) - Respiratory Respiratory: No respiratory distress, Clear bilaterally - Abdomen Abdomen: Non tender - Neuro Eye Opening: Spontaneous Motor: Obeys Commands Verbal: Confused GCS Score: 14 NIHSS - Time Time: 18:30 - Level of Consciousness Level of consciousness: (0) Alert, Keenly responsive LOC Questions: (2) Answers neither correct LOC Commands: (0) Performs both correctly - Gaze Best Gaze: (0) Normal - Visual Visual: (0) No loss - Facial Palsy Facial Palsy: (0) Normal, symmetrical movement - Motor Arms (both separate) Motor Arm (right): (1) Drift Motor Arm (left): (1) Drift - Motor Legs (both separate) Motor Leg (right): (1) Drift Motor Leg (left): (1) Drift - Limb Ataxia Limb Ataxia: (0) Absent - Sensory Sensory: (0) Normal - Best Language Best Language: (0) No aphasia - Dysarthria Dysarthria: (0) Normal - Extinction and Inattention (formally neg Extinction and inattention: (0) No abnormality - Total Score/Results Total Score/Result: 6 Results - Vitals Vitals: Vital Signs - 24 hr 12/11/23 12/11/23 12/11/23 18:36 19:14 21:25 Temperature 37.7 C Heart Rate 92 84 86 Respiratory 17 17 18 Rate Blood Pressure 154/75 H 138/61 H 147/100 H O2 Saturation 93 93 97 Oxygen O2 Source Room air - EKG (time done) 1835 EKG releavant findings:: EKG personally interpreted by author of this note. Relevant findings are: Rate: Rate (enter#) (90) Rhythm: NSR [place]: Normal Intervals: Prolonged [place] QRS: LVH Ischemia: Non specific changes. No: ST elevation c/w ischemia - Labs Labs: Laboratory Tests 12/11/23 12/11/23 12/11/23 18:44 18:44 18:44 WBC 13.9 H RBC 4.45 L Hgb 14.2 Hct 44.5 MCV 100.0 H MCH 31.9 H MCHC 31.9 L RDW 13.6 Plt Count 192 MPV 10.5 Neut # (Auto) 11.4 H Lymph # (Auto) 1.3 L [place] # (Auto) 1.2 H Eos # (Auto) 0.0 Baso # (Auto) 0.1 Absolute Nucleated RBC 0.00 Nucleated RBC % 0.0 PT 30.7 H INR 3.0 H Sodium 142 Potassium 4.4 Chloride 106 Carbon Dioxide 28 Anion Gap 8.0 BUN 22 H Creatinine 1.2 Estimated GFR (MDRD) 58 L Glucose 170 H Calcium 9.3 Total Bilirubin 0.8 AST 21 ALT 19 Alkaline Phosphatase 68 Total Protein 7.2 Albumin 4.1 Globulin 3.1 Albumin/Globulin Ratio 1.3 Lipase < 10 L Urine Color Urine Clarity Urine pH Ur Specific [place] Urine Protein Urine Glucose (UA) Urine Ketones Urine Occult Blood Urine Nitrite Urine Bilirubin Urine Urobilinogen Ur Leukocyte Esterase Ur Microscopic Review Urine Culture Comments 12/11/23 19:35 WBC RBC Hgb Hct MCV MCH MCHC RDW Plt Count MPV Neut # (Auto) Lymph # (Auto) [place] # (Auto) Eos # (Auto) Baso # (Auto) Absolute Nucleated RBC Nucleated RBC % PT INR Sodium Potassium Chloride Carbon Dioxide Anion Gap BUN Creatinine Estimated GFR (MDRD) Glucose Calcium Total Bilirubin AST ALT Alkaline Phosphatase Total Protein Albumin Globulin Albumin/Globulin Ratio Lipase Urine Color YELLOW Urine Clarity CLEAR Urine pH 8.0 H Ur Specific [place] 1.010 Urine Protein NEGATIVE Urine Glucose (UA) NEGATIVE Urine Ketones NEGATIVE Urine Occult Blood TRACE-INTA Urine Nitrite NEGATIVE Urine Bilirubin NEGATIVE Urine Urobilinogen 0.2 (NORMAL) Ur Leukocyte Esterase NEGATIVE Ur Microscopic Review NOT INDICATED Urine Culture Comments NOT INDICATED - Rads (name of study) CT of the head demonstrating atrophy without acute disease. Relevant Findings:: Final report received, EMP independent interpretation of test CT of the head was unremarkable Relevant Findings:: Final report received Single view chest x-ray suspecting mild pulmonary edema with diffuse interstitial opacities Relevant Findings:: Final report received, EMP independent interpretation of test PD Medical Decision Making - ED course ED course: He presents with symptoms that do not seem like stroke, nothing really lateralizing. He has a history of dementia and we do not know his baseline but the should be here shortly. Previously was on warfarin for history of PE. Subsequent workup demonstrated a unremarkable head CT and CT angiography. Lab work demonstrated an elevated white count but looking back in his records he more often than not has an elevated white count. His INR is therapeutic at 3. Urinalysis was normal. Spoke with the by phone and discussed the findings. Offered to place him in observation which she declined and will have someone come pick him up. We talked for a bit about eventual plans as he seems fairly demented to be home with just an 82-year-old . She states she is working on home care versus SNF although the patient has been reluctant to consider a SNF so far. Departure - Departure Disposition: Home, Self Care Clinical Impression: Confusion Dementia Qualifiers: Dementia type: unspecified type Dementia severity: severe Dementia behavioral or psychological symptom: without behavioral, psychotic, or mood disturbance or anxiety Qualified Code(s): F03.C0 - Unspecified dementia, severe, without behavioral disturbance, psychotic disturbance, mood disturbance, and anxiety Condition: Good Record reviewed to determine appropriate education?: Yes Instructions: ED Confusion, ED Dementia Caregiver Support Comments: Kevin was seen today for worsening confusion. There is no evidence of stroke either clinically nor on imaging. Lab work shows an elevated white count at 13,000, but looking back at his labs he has more often not than not had a white count in that range for the last 3 to 4 years. If you were to develop a fever please return for reevaluation. Otherwise follow-up with your primary care physician, also continue your efforts at alternative care arrangements as he is becoming too demented to be cared for simply by his 82-year-old at home. Forms: PCP List Discharge Date/Time: 12/11/23 21:26
[2023-12-11 18:47] LABS: BASOPHILS # (AUTO) 0.1 10^3/uL (0.0-0.1); BASOPHILS % (AUTO) 0.4 %; EOSINOPHILS % (AUTO) 0.3 %; HCT - HEMATOCRIT 44.5 % (42.0-52.0); HGB - HEMOGLOBIN 14.2 g/dL (14.0-18.0); LYMPHOCYTES # (AUTO) 1.3 10^3/uL (1.5-3.5); MEAN CORPUSCULAR HEMOGLOBIN 31.9 pg (27.0-31.0); MEAN CORPUSCULAR HGB CONC 31.9 g/dL (32.0-36.0); MEAN PLATELET VOLUME 10.5 fL (7.4-11.4); MONOCYTES # (AUTO) 1.2 10^3/uL (0.0-1.0); MONOCYTES % (AUTO) 8.3 %; NEUTROPHILS # (AUTO) 11.4 10^3/uL (1.5-6.6); NEUTROPHILS % (AUTO) 81.6 %; PLT - PLATELET COUNT 192 10^3/uL (130-450); RED BLOOD COUNT 4.45 10^6/uL (4.70-6.10); RED CELL DISTRIBUTION WIDTH 13.6 % (12.0-15.0); WHITE BLOOD COUNT 13.9 x10^3/uL (4.8-10.8)
[2023-12-11 18:53] LABS: PT - PROTHROMBIN TIME 30.7 secs (9.9-12.6)
--- NOTE | 2023-12-11 18:59 | CT Report ---
PROCEDURE: Head W/O Stroke Protocol INDICATIONS: Neuro deficit, acute, stroke suspected TECHNIQUE: Noncontrast 4.5 mm thick angled axial sections acquired from the foramen magnum to the vertex, with c oronal reformats. For radiation dose reduction, the following was used: automated exposure control, adjustment of mA and/or kV according to patient size. COMPARISON: 09/21/2022, 12/27/2020 FINDINGS: Image quality: Excellent. CSF spaces: Basal cisterns are patent. No extra-axial fluid collections. Ventricles are normal in size and shape. Brain: No midline shift. No intracranial masses or hemorrhage. [place]and-white matter interface is norm al. No acute intracranial process. Skull and face: Calvarium and visualized facial bones are intact, without suspicious lesions. Sinuses: Visualized sinuses and mastoids are clear. IMPRESSION: No acute intracranial pathology Above discussed with Drake Muhammad MD at 6:57 PM on 12/11/2023. This study fulfills neurological imaging criteria for inclusion or exclusion of acute stroke therapie s based on available published neurological imaging guidelines. Reviewed by: Andi Bryant MD on 12/11/2023 6:58 PM PDT Approved by: Andi Bryant MD on 12/11/2023 6:58 PM PDT Station ID: [id number]
[2023-12-11] MEDS ORDERED: iohexoL-300 100 ML VIAL ONE (19:01)
--- NOTE | 2023-12-11 19:02 | CT Report ---
PROCEDURE: Angio Head/Neck INDICATIONS: cva sx TECHNIQUE: After the administration of intravenous contrast, 1 mm thick sections acquired from the aortic arch t hrough the [place]. 3-dimensional opizcao-nhfkuzpmu-pehrwyyykc (MIP) and/or volume renderin g reformats were acquired of the central intracranial vasculature and neck separately. For radiation dose reduction, the following was used: automated exposure control, adjustment of mA and/or kV acco rding to patient size. CONTRAST: 80ml [id number] COMPARISON: CT 11/29/2022, 09/21/2022 FINDINGS: Image quality: Diagnostic. HEAD CT: CSF Spaces: Basal cisterns are patent. No extra-axial fluid collections. Ventricles are normal in size and shape. Brain: No significant abnormality is seen for scanning technique. Skull and face: Calvarium and visualized facial bones appear intact, without suspicious lesions. Sinuses: Visualized sinuses and mastoids are clear. HEAD CT ANGIOGRAPHY: Anterior circulation: Intracranial internal carotid arteries are normal in size and flow. The flow within the paired anterior cerebral arteries is normal and symmetric. The flow within the middle cer ebral arteries is normal and symmetric. The anterior communicating artery is seen. No aneurysms are seen. Posterior circulation: Visualized portions of the vertebral arteries demonstrate normal caliber, and join to form a normal appearing basilar artery. Flow within the posterior cerebral arteries is norm al and symmetric. No aneurysms are seen. NECK CT ANGIOGRAPHY: Carotid system: The great vessels demonstrate a conventional anatomy as they arise from the aortic a rch. The origins of the common carotid arteries appear patent. The common carotid arteries demonstr ate normal caliber and courses. The bifurcation regions are both widely patent. The internal caroti d arteries demonstrate normal calibers and courses. Posterior circulation: Diminutive right vertebral artery. The more superior extracranial portions of both vertebral arteries also demonstrate normal courses and calibers. They join to form a normal ap pearing basilar artery. Soft tissues: Visualized neck soft tissues demonstrate no suspicious abnormalities. Bones: No suspicious bony lesions. Visualized cervical spine appears normally aligned. IMPRESSION: No significant intracranial arterial abnormality is seen. No significant abnormality is seen within the arteries of the neck. The estimate of stenosis included in the report of the imaging study was calculated using the NASCET method Reviewed by: Andi Bryant MD on 12/11/2023 7:00 PM PDT Approved by: Andi Bryant MD on 12/11/2023 7:00 PM PDT Station ID: [id number]
[2023-12-11 19:05] LABS: ALBUMIN 4.1 g/dL (3.2-5.5); ALBUMIN/GLOBULIN RATIO 1.3 (1.0-2.2); ALKALINE PHOSPHATASE 68 IU/L (42-121); ALT ALANINE AMINOTRANSFERASE 19 IU/L (10-60); AST ASPARTATE AMINOTRANSFERASE 21 IU/L (10-42); BILIRUBIN,TOTAL 0.8 mg/dL (0.2-1.0); BUN - BLOOD UREA NITROGEN 22 mg/dL (6-20); CALCIUM 9.3 mg/dL (8.5-10.3); CARBON DIOXIDE - CO2 28 mmol/L (21-32); CHLORIDE 106 mmol/L (101-111); CREATININE 1.2 mg/dL (0.6-1.3); GFR - MDRD 58 (>89); GLUCOSE 170 mg/dL (74-104); LIPASE < 10 U/L (11-82); POTASSIUM 4.4 mmol/L (3.5-4.5); SODIUM 142 mmol/L (135-145); TOTAL PROTEIN 7.2 g/dL (6.4-8.9)
[2023-12-11] MEDS: iohexoL-300 100 ML VIAL IVP ONE (19:27)
--- NOTE | 2023-12-11 19:39 | XRAY Report ---
PROCEDURE: Chest 1V INDICATIONS: Leukocytosis TECHNIQUE: One view of the chest was acquired. COMPARISON: None. FINDINGS: Surgical changes and devices: None. Lungs and pleura: Low lung volumes. Diffuse interstitial opacities and mild bronchial thickening. Mediastinum: Mediastinal contours appear normal. Heart size is normal. Bones and chest wall: No suspicious bony lesions. Overlying soft tissues appear unremarkable. IMPRESSION: Suspect mild pulmonary edema with diffuse interstitial opacities and bronchial thickening. Reviewed by: Andi Bryant MD on 12/11/2023 7:37 PM PDT Approved by: Andi Bryant MD on 12/11/2023 7:37 PM PDT Station ID: [id number]
[2023-12-11 19:45] LABS: BILIRUBIN,URINE NEGATIVE (NEGATIVE); GLUCOSE, URINE (UA) NEGATIVE (NEGATIVE); KETONES,URINE (UA) NEGATIVE (NEGATIVE); LEUKOCYTE ESTERASE, URINE NEGATIVE (NEGATIVE); NITRITE,URINE NEGATIVE (NEGATIVE); OCCULT BLOOD,URINE TRACE-INTA (NEGATIVE); PROTEIN,URINE NEGATIVE (NEGATIVE); UROBILINOGEN,URINE 0.2 (NORMAL) E.U./dL (NORMAL)
[2023-12-11 19:47] LABS: CLARITY,URINE CLEAR (CLEAR)
[2023-12-11 21:30] VITALS: BP 147/100; O2SAT 97
== END 2023-12-11 21:26 | disposition home or self-care (01) ==
LOC: EDUNIT# → ED 18:24
DX: F03.C0 Unspecified dementia, severe, without behavioral disturbance, psychotic disturbance, mood disturbance, and anxiety (principal); I10 Essential (primary) hypertension; E78.00 Pure hypercholesterolemia, unspecified; Z86.73 Personal history of transient ischemic attack (TIA), and cerebral infarction without residual deficits; Z79.899 Other long term (current) drug therapy; Z79.01 Long term (current) use of anticoagulants; Z87.891 Personal history of nicotine dependence
CPT/HCPCS: 36415; 70450; 70496; 70498; 71045; 80053; 81003; 83690; 85025; 85610; 93005; 99284; P9612; Q9967; 51701; 81001; 87086

== ENCOUNTER 2023-12-19 11:31 | Outpatient (CLI) | payer MEDICARE | END 2023-12-19 11:32 | LOC: LAB.N 11:31 | PROVIDERS: ATTEND Internal Medicine | DX: D68.51 Activated protein C resistance (principal); Z79.01 Long term (current) use of anticoagulants | CPT/HCPCS: 36416; 85610 ==

== ENCOUNTER 2024-01-15 11:30 | Outpatient (CLI) | payer MEDICARE | END 2024-01-15 11:31 | disposition home or self-care (01) | LOC: LAB.N 11:30 | PROVIDERS: ATTEND Internal Medicine | DX: D68.51 Activated protein C resistance (principal); Z79.01 Long term (current) use of anticoagulants | CPT/HCPCS: 36415; 85610 ==

== ENCOUNTER 2024-02-12 11:13 | Outpatient (CLI) | payer MEDICARE | END 2024-02-12 11:14 | disposition home or self-care (01) | LOC: LAB.N 11:13 | PROVIDERS: ATTEND Internal Medicine | DX: D68.51 Activated protein C resistance (principal); Z79.01 Long term (current) use of anticoagulants | CPT/HCPCS: 36416; 85610 ==

== ENCOUNTER 2024-03-04 11:06 | Outpatient (CLI) | payer MEDICARE ==
[2024-03-04 18:03] LABS: INR 3.7 (0.8-1.2); PT - PROTHROMBIN TIME 37.3 secs (9.9-12.6)
== END 2024-03-04 11:07 | disposition home or self-care (01) ==
LOC: LAB.N 11:06
PROVIDERS: ATTEND Internal Medicine
DX: D68.51 Activated protein C resistance (principal); Z79.01 Long term (current) use of anticoagulants
CPT/HCPCS: 36415; 36416; 85610

== ENCOUNTER 2024-03-17 10:39 | Outpatient (CLI) | payer MEDICARE | END 2024-03-17 10:40 | disposition home or self-care (01) | LOC: LAB.N 10:39 | PROVIDERS: ATTEND Internal Medicine | DX: D68.51 Activated protein C resistance (principal); Z79.01 Long term (current) use of anticoagulants | CPT/HCPCS: 36416; 85610 ==

== ENCOUNTER 2024-03-25 11:24 | Outpatient (CLI) | payer MEDICARE | END 2024-03-25 11:25 | disposition home or self-care (01) | LOC: LAB.N 11:24 | PROVIDERS: ATTEND Internal Medicine | DX: D68.51 Activated protein C resistance (principal); Z79.01 Long term (current) use of anticoagulants | CPT/HCPCS: 36416; 85610 ==

== ENCOUNTER 2024-04-15 11:38 | Outpatient (CLI) | payer MEDICARE | END 2024-04-15 11:39 | disposition home or self-care (01) | LOC: LAB.N 11:38 | PROVIDERS: ATTEND Internal Medicine | DX: D68.51 Activated protein C resistance (principal); Z79.01 Long term (current) use of anticoagulants | CPT/HCPCS: 36416; 85610 ==